=== PATIENT | female | born 1945 | race Caucasian/White ===

== ENCOUNTER → 2019-09-19 14:23 | Outpatient (CLI) | payer MEDICARE, BC, SELFPAY ==
[2019-09-19 13:37] VITALS: BMI 38.5
[2019-09-19 16:54] LABS: BNP,B-Type NATRIURETIC PEPTIDE 161.8 pg/mL (0-100)
[2019-09-19 16:55] LABS: Thyroid Stim Hormone (TSH) 1.33 uIU/mL (0.358-3.74)
== END ==
PROVIDERS: Family Provider Internal Medicine; PCP Internal Medicine; Referring Provider Internal Medicine Cardiovascular Disease; Visit Provider Internal Medicine Cardiovascular Disease
DX: I48.91 Unspecified atrial fibrillation (principal); R06.00 Dyspnea, unspecified
CPT/HCPCS: 36415; 83880; 84443

== ENCOUNTER → 2019-09-27 11:01 | Outpatient (CLI) | payer MEDICARE, BC, SELFPAY ==
[2019-09-19 13:37] VITALS: BMI 38.5
--- NOTE | 2019-09-27 11:02 | ECHOD_ITS ---
Reason For Study: Afib, Aflutter Procedure This was a 2D Doppler, Color Flow transthoracic echocardiogram. Contrast injection was performed. Exam performed in department. Left Ventricle Normal LV size. The estimated ejection fraction is 45 %. Unable to assess diastolic dysfunction due to arrhythmia. No regional wall motion abnormalities noted. Right Ventricle Normal RV size. Normal systolic function. Atria Normal left atrium. Normal right atrium. Mitral Valve Normal mitral valve. Mild (1+) eccentric mitral valve insufficiency. Tricuspid Valve Normal tricuspid valve. Mild (1+) tricuspid valve insufficiency. Pulmonary artery systolic pressure is 30 mmHg. Aortic Valve Trisinus/trileaflet aortic valve. Mild focal aortic valve calcification. Pulmonic Valve Normal pulmonic valve. Mild (1+) pulmonic valve insufficiency. Great Vessels Normal aortic root. The pulmonary artery is normal size. Normal inferior vena cava. Pericardium/Pleural No pericardial effusion. Medication Diluted definity 6ml given slow IV push to enhance endocardial definition. MMode/2D Measurements & Calculations LVIDd: 4.8 cm IVSd: 0.97 cm Ao root diam: 2.9 cm LVIDs: 4.1 cm LVPWd: 0.99 cm RVDd: 3.0 cm FS: 15.3 % LAV(MOD-bp): 58.6 ml LA A4 area: 20.0 cm2 LA dimension(2D): 4.0 cm LAV(MOD-bp) Indexed: 29.8 ml/m2 LAV(MOD-sp2): 51.7 ml LAV(MOD-sp4): 53.8 ml RA A4 area: 13.9 cm2 Doppler Measurements & Calculations MV E max rubina: 79.7 cm/sec Ao V2 max: 147.2 cm/sec LV V1 max: 102.2 cm/sec Ao max P.7 mmHg LV V1 max P.2 mmHg Ao V2 mean: 108.5 cm/sec Ao mean P.1 mmHg Ao V2 VTI: 28.3 cm PA V2 max: 69.2 cm/sec TR max rubina: 260.5 cm/sec TR max P.1 mmHg Interpretation Summary Normal LV size. The estimated ejection fraction is 45 %. Unable to assess diastolic dysfunction due to arrhythmia. Mild (1+) eccentric mitral valve insufficiency. Contrast injection was performed. Ordering Physician: Gilberto Mcarthur Referring Physician: Rocio Jack Performed By: Shy Wood, ROMY, RVT
== END ==
PROVIDERS: Family Provider Internal Medicine; PCP Internal Medicine; Referring Provider Internal Medicine Cardiovascular Disease; Visit Provider Internal Medicine Cardiovascular Disease
DX: R06.00 Dyspnea, unspecified (principal); I48.91 Unspecified atrial fibrillation; I48.92 Unspecified atrial flutter
CPT/HCPCS: 93306; Q9957; A4216; C8929

== ENCOUNTER → 2019-10-15 05:54 | Outpatient (CLI) | payer MEDICARE, BC, SELFPAY ==
[2019-09-19 13:37] VITALS: BMI 38.5
--- NOTE | 2019-10-15 15:46 | STRESSREP ---
Stress Test Report Pharmacologic myocardial perfusion stress test. 74-year-old lady with a history of chest pain. Resting EKG demonstrates atrial fibrillation with a rate of 105 bpm resting blood pressure is 120/82 mmHg. 0.4 mg of regadenoson was infused per usual protocol followed by rapid intravenous saline flush injection continuous EKG monitoring was performed. The patient maintained atrial fibrillation throughout the recording. The maximum heart rate was 133 bpm which was 90% of maximum predicted heart rate the maximum workload was 1 metabolic equivalent. At rest nonspecific ST-T wave changes were noted at peak infusion nonspecific ST-T wave changes were noted. The resting blood pressure is 120/82 with a final blood pressure 124/82. Myocardial perfusion protocol. 14.1 mCi of technetium 99m sestamibi was injected at rest. 0.4 mg of regadenoson was infused per usual protocol peak infusion 44.4 mCi of technetium 99m sestamibi was injected stress images were obtained stress and rest images were reconstructed in comparing the short axis vertical long horizontal long axis. Gated images were also obtained Perfusion SPECT analysis: Review of the stress images demonstrate normal uptake of tracer noted in all areas of the myocardium the resting images similar demonstrate normal uptake of tracer noted in all areas of the myocardium. No areas of reversibility are noted suggest ischemia no previous infarct is noted. Gated SPECT analysis: The gated ejection fraction is noted to be 45%. Conclusion: Normal pharmacologic myocardial perfusion stress test. Atrial fibrillation noted. Low normal ejection fraction.
== END ==
PROVIDERS: Family Provider Internal Medicine; PCP Internal Medicine; Referring Provider Physician Assistant Medical; Visit Provider Physician Assistant Medical
DX: I48.91 Unspecified atrial fibrillation (principal); R06.09 Other forms of dyspnea
CPT/HCPCS: 78452; 93017; A9500; A4216; J2785

== ENCOUNTER 2019-10-22 10:48 | Day surgery (SDC) | payer MEDICARE, BC, SELFPAY ==
[2019-09-19 13:37] VITALS: BMI 38.5
[2019-10-22 09:12] VITALS: BMI 38.5
--- NOTE | 2019-10-22 11:49 | PCM.HP.BLA ---
History and Physical Date of Admission: 10/22/19 This is a 74-year-old female that presents here today for a cardioversion. She has a new diagnosis of atrial fibrillation. She has been anticoagulated for at least 30 days. She does have a history of hypertension, hyperlipidemia, diabetes mellitus, Jalil's vasculitis. Patient also had a history of right breast carcinoma in 2002. She presented to our office in August 2019 with symptoms of tachycardia and shortness of breath. She was noted to be in atrial fibrillation. A factor X a inhibitor was added in addition to a rate limiting medication. She did undergo an echocardiogram which demonstrated an ejection fraction of 45%. Unable to assess diastolic dysfunction due to arrhythmia. Mild mitral valve insufficiency. Pharmacologic nuclear stress test was negative for ischemia. 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) Breast cancer, right breast (Resolved) Fibromyalgia (Chronic) Obesity (Chronic) Osteoarthritis (Chronic) Type 2 diabetes mellitus (Chronic) Unspecified asthma, uncomplicated (Chronic) Jalil's granulomatosis (Chronic) Surgical History H/O total hysterectomy (Resolved) History of lumpectomy of right breast (Resolved 2002) ROS Const Const: Positive for fatigue; negative for weakness, headache(s), frequent falls, difficulty sleeping or excessive sweating Eyes Eyes: Negative for loss of peripheral vision, transient loss of vision, blurry vision, double vision or tunnel vision ENT ENT: Negative for headache(s), dizziness, Nosebleed/epistaxis or balance problems Cardio Chest Pain: No Palpitations: No Edema: Bilateral (Non pitting BLE edema) Muscle aches with walking: None Resp Respiratory: Positive for SOB with activity; negative for SOB at rest, SOB orthopnea\SOB lying down, Cough or paroxysmal nocturnal dyspnea GI GI: Negative nausea, vomiting, heartburn or black,tarry stools : Negative for hematuria Musc Musc: Negative for muscle aches/ myalgia, muscle weakness, joint pain or balance problems Skin Skin: Negative non-healing lesions, rash or unusual bruising Neuro Neuro: Negative for dizziness, lightheadedness, near syncope, syncope, orthostatic symptoms, frequent falls, headache(s), weakness, blurry vision, double vision or lack of coordination Bean Hematologic/Lymphatic: Negative for easy bleeding or easy bruising Endo Endo: Positive for fatigue; negative for excessive sweating or increased thirst/drinking Psych Psych: Negative for anxiety or depression Allergy Allergy/Immunology: Negative for hives, Negative for rash Cardiology Exam Const Appearance: cooperative, healthy appearing, no acute distress, well developed and well groomed Nutritional Appearance: average body habitus and well nourished Orientation: alert, awake and oriented x3 Head Head: normal to inspection, normocephalic and atraumatic Ears: hearing grossly normal bilaterally and external ears normal Nose: external nose normal, nares normal, nasal mucous membranes and turbinates normal, septum normal, no nasal discharge Face and Sinus: face symmetric Mouth: oral mucosae normal, tongue normal, oropharynx normal and moist mucous membranes Teeth and gingiva: dentition normal Throat: posterior oropharynx normal, tonsils normal and uvula midline Eyes General: appearance normal, both eyes and all related structures Eyelids: eyelids normal Conjunctivae: conjunctivae normal Pupils: PERRL, normal by confrontation and accommodation normal EOM: EOM intact bilaterally Neck Neck: normal visual inspection, trachea midline and no JVD JVD: +5 Carotids: normal carotid upstroke and bounding pulses Chest Chest inspection: normal inspection of the chest, symmetric chest movement and normal respiratory effort Auscultation: Bilateral: Clear to Auscultation Cardio Palpation: normal PMI Rate: regular rate Rhythm: irregular rhythm Heart sounds: S1 normal, S2 normal and normal, physiologic split S2; negative rub, gallop or murmur GI GI: normal to inspection, soft, no hepatosplenomegaly and bowel sounds present Neuro General: alert, awake, oriented x3, gait normal, moves all extremities and no focal sensory deficit Skin Skin: no rashes or lesions noted Extremities Pulses: Normal: Right Femoral Pulse, Left Femoral Pulse, Right Dorsalis Pedis Pulse, Left Dorsalis Pedis Pulse, Right Posterior Tibial Pulse, Left Posterior Tibial Pulse, Right Radial Pulse, Left Radial Pulse Lower Extremity Edema: None: Bilateral Musculoskel Musculoskeletal: No joint tenderness Psych Psychological: normal affect Assessment & Plan 1. Atrial fibrillation with rapid ventricular response I48.91 We will proceed with a cardioversion today. She will follow-up in the office next week for an EKG. Will adjust medications appropriately. 2. Essential (primary) hypertension I10 She will continue with her current medications 3. Non-ischemic cardiomyopathy I42.8 Her ejection fraction is noted to 45%. She will continue with her MU inhibitor in addition to her beta-cristina that she was recently started on. Hopefully after she has been cardioverted this will improve. We will recheck echocardiograms as deemed appropriate.
--- NOTE | 2019-10-22 12:18 | CARDIOVERS_ITS ---
Cardioversion Cardioversion: DC cardioversion. 74-year-old lady with a history of nonischemic cardiomyopathy and persistent atrial fibrillation. Patient was brought to the cardiac catheterization lab in the postabsorptive nonsedated state. Informed consent was obtained. The patient was seen by Dr. Monae of the critical care division. Anterior-posterior pads were applied. An EKG was done which ascertained atrial fibrillation. Patient was then administered 6 mg of intravenous etomidate. 200 J of synchronized DC biphasic cardioversion energy were applied with prompt reversal to sinus rhythm. Patient had short periods of supraventricular tachyarrhythmia. Patient will be administered 200 mg of oral amiodarone daily for a month pre ceded by 150 mg of intravenous amiodarone. Continue anticoagulation Follow-up in the heart group office. Conclusion: Successful DC cardioversion from atrial fibrillation to sinus rhythm.
--- NOTE | 2019-10-22 12:39 | PCM.OP.PRO ---
Procedure Report Date of Procedure: 10/22/19 CONSCIOUS SEDATION REPORT DATE OF SERVICE: October 22, 2019 BRIEF HISTORY OF PRESENT ILLNESS: The patient is a 74-year-old female who presented to [facility] for an elective outpatient cardioversion due to underlying atrial fibrillation. The patient is currently anticoagulated on Eliquis. Her last surface echocardiogram revealed an ejection fraction of approximately 45%. The patient denies any previous anesthetic complications. She does report a known history of asthma, which is currently controlled with the use of daily Advair. She denies a history of obstructive sleep apnea. PHYSICAL EXAMINATION: VITAL SIGNS: Reviewed and were acceptable. GENERAL: The patient is an obese female, in no apparent distress, speaking in full sentences. HEENT: Normocephalic, atraumatic. Mucous membranes are moist and pink. Good mouth opening noted. Trachea is midline. CHEST: S1, S2 irregularly irregular. No murmurs, rubs or gallops were noted. LUNGS: Clear to auscultation bilaterally without appreciable wheezes, rales or rhonchi. ABDOMEN: Soft, nontender, nondistended. Positive bowel sounds. EXTREMITIES: There is no clubbing, cyanosis or edema. ASA Class: II DESCRIPTION OF PROCEDURE: After confirmation of informed consent, the patient's anesthesia plan was reviewed in detail. Etomidate was chosen. Risks and benefits were reviewed and the patient agreed to proceed. At 1210, the patient was given 6 mg of etomidate. The patient achieved an appropriate level of sedation and was given a 200 joule synchronized cardioversion by Dr. Mcarthur at the bedside. This was successful in achieving normal sinus rhythm. The patient was monitored until 1220, at which time she reached her baseline mental status and function. The patient tolerated the procedure well. COMPLICATIONS: None ESTIMATED BLOOD LOSS: None RECOMMENDATIONS: Okay to recover in usual fashion. Code Visit 9xxxx: Other Procedure See Report - [id number]
== END 2019-10-22 13:23 | disposition home or self-care (01) ==
PROVIDERS: Family Provider Internal Medicine; PCP Internal Medicine; Referring Provider Internal Medicine Cardiovascular Disease; Visit Provider Internal Medicine Cardiovascular Disease
DX: I48.19 Other persistent atrial fibrillation (principal); E11.9 Type 2 diabetes mellitus without complications; I10 Essential (primary) hypertension; E78.5 Hyperlipidemia, unspecified; I34.0 Nonrheumatic mitral (valve) insufficiency; I42.8 Other cardiomyopathies; M31.30 Wegener's granulomatosis without renal involvement; J45.909 Unspecified asthma, uncomplicated; M79.7 Fibromyalgia; E66.9 Obesity, unspecified; M19.90 Unspecified osteoarthritis, unspecified site; Z79.899 Other long term (current) drug therapy; Z79.01 Long term (current) use of anticoagulants; Z79.84 Long term (current) use of oral hypoglycemic drugs; Z85.3 Personal history of malignant neoplasm of breast
CPT/HCPCS: 92960; 93005; J7040

== ENCOUNTER → 2019-11-22 12:52 | Outpatient (CLI) | payer MEDICARE, BC, SELFPAY ==
[2019-10-25 09:10] VITALS: BMI 38.9
== END ==
PROVIDERS: Family Provider Internal Medicine; PCP Internal Medicine; Referring Provider Internal Medicine Cardiovascular Disease; Visit Provider Internal Medicine Cardiovascular Disease
DX: I48.19 Other persistent atrial fibrillation (principal)
CPT/HCPCS: 93225; 93226

== ENCOUNTER → 2020-07-15 06:54 | Outpatient (CLI) | payer MEDICARE, BC, SELFPAY ==
[2020-06-05 12:32] VITALS: BMI 40.4
--- NOTE | 2020-07-15 08:19 | RAD_ITS ---
STUDY: X-RAY CHEST REASON FOR EXAM: Female, 75 years old. Patient is on amiodarone. Hx of Right sided breast CA with hx of lumpectomies 4 times. TECHNIQUE: PA and lateral views of the chest. COMPARISON: None. FINDINGS: Surgical clips are seen in the right axillary region. Prior right mastectomy. Hyperinflation. Calcific nodular densities seen in the anterior right lower lobe. There is no demonstrated pleural abnormality. Normal size heart. Normal mediastinum and roosevelt. Normal visualized pulmonary arteries. Normal visualized aortic arch and descending thoracic aorta. There is demineralization of the osseous structures. Normal visualized ribs, clavicles, and shoulders. There is no demonstrated abnormality of the visualized soft tissue structures of the upper abdomen. RAD/Chest PA and Lateral IMPRESSION: Hyperinflation. No acute abnormality is seen. Electronically Signed: Ac Nicole, at 9:37 EDT , Service support ,
--- NOTE | 2020-07-16 08:20 | PFT ---
INTRODUCTION: The patient is a 75-year-old female that presents for pulmonary function studies secondary to a diagnosis of shortness of breath. Respiratory therapy reports good patient effort. Bronchodilators were used during testing. INTERPRETATION: Forced expiration spirometry demonstrates the presence of a moderate large airways obstructive ventilatory defect. There was a significant response to aerosolized bronchodilators noted. Spirograms are of good quality and plateau gradually indicating slow emptying of the lungs. Body plethysmography was performed and revealed an elevated TLC and RV to 137% and 216% of predicted, respectively. This would be indicative of underlying hyperinflation and air trapping. Diffusing capacity by single breath CO is reduced at 44% of predicted. IMPRESSION: Partially reversible moderate large airways obstructive ventilatory defect with associated hyperinflation, air trapping and disproportionate reduction in diffusing capacity.
== END ==
LOC: PSN 06:57
PROVIDERS: PCP Internal Medicine; Referring Provider Internal Medicine Cardiovascular Disease; Visit Provider Internal Medicine Cardiovascular Disease
DX: I48.19 Other persistent atrial fibrillation (principal)
CPT/HCPCS: 71046; 94060; 94726; 94729

== ENCOUNTER 2021-02-26 08:00 | Emergency (ER) | payer MEDICARE, BC, SELFPAY ==
[2020-07-24 06:25] VITALS: BMI 40.6
[2021-02-26 08:01] VITALS: BP 146/113; PULSE 53; RESP 16; TEMP 36.4; O2SAT 95; BMI 41.3
--- NOTE | 2021-02-26 08:44 | RAD_ITS ---
STUDY: X-RAY - LEFT KNEE REASON FOR EXAM: Female, 75 years old. Injury TECHNIQUE: 4 view(s) of the knee. COMPARISON: None. FINDINGS: Normal visualized distal femur. Normal visualized proximal tibia and fibula. Normal proximal tibiofibular articulation. Normal medial femorotibial compartment. Normal lateral femorotibial compartment. Normal patellofemoral articulation. Diffuse soft tissue swelling. RAD/Knee 4 or More Views IMPRESSION: Diffuse soft tissue swelling. Electronically Signed: Ac Nicole MD at 9:45 EDT , Service support ,
--- NOTE | 2021-02-26 08:44 | RAD_ITS ---
STUDY: X-RAY - LEFT TIBIA AND FIBULA REASON FOR EXAM: Female, 75 years old. Injury TECHNIQUE: 2 view(s) of the tibia and fibula were obtained. COMPARISON: None. FINDINGS: Normal visualized tibia. Normal visualized fibula. Calcaneal spurs. Diffuse soft tissue swelling. RAD/Tibia & Fibula 2 Views IMPRESSION: Diffuse soft tissue swelling. Electronically Signed: Ac Nicole MD at 9:45 EDT , Service support ,
--- NOTE | 2021-02-26 09:17 | EDS_ITS ---
HPI History of Present Illness Chief Complaint: Lower Extremity Injury Informant: patient Onset/Context/Timing Onset: Yesterday Narrative Narrative: 75-year-old female presenting after mechanical fall. She states this occurred yesterday. She tripped over a rug and fell onto her knees. She states most of her weight went onto her left knee. She denies hitting her head or losing consciousness. She is on Eliquis. She is able to ambulate with pain. She took Tylenol prior to arrival. [facility] Medical History (Updated 02/26/21 @ 10:[address] 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 Hyperlipemia Non-ischemic cardiomyopathy Nonsustained ventricular tachycardia Obesity Osteoarthritis Paroxysmal atrial fibrillation Persistent atrial fibrillation Rheumatoid arthritis Type 2 diabetes mellitus Unspecified asthma, uncomplicated Jalil's granulomatosis Home Medications albuterol sulfate 90 mcg/actuation aerosol inhaler 2 puff INHALATION Q6H 09/18/19 [History Last Taken Unknown] atorvastatin 20 mg tablet 20 mg PO QHS 09/18/19 [History Last Taken Unknown] calcium carbonate-vitamin D3 600 mg calcium-200 unit capsule 1 cap PO DAILY cap 09/18/19 [History Last Taken Unknown] esomeprazole magnesium 40 mg capsule,delayed release 40 mg PO BID cap 09/18/19 [History Last Taken Unknown] ferrous sulfate 325 mg (65 mg iron) tablet 325 mg PO TID tab 09/18/19 [History Last Taken Unknown] fluticasone 100 mcg-salmeterol 50 mcg/dose blistr powdr for inhalation 1 puff INHALATION BID 09/18/19 [History Last Taken Unknown] glipizide 5 mg tablet 5 mg PO BID 09/18/19 [History Last Taken Unknown] leucovorin calcium 5 mg tablet 5 mg PO QWEEK tab 09/18/19 [History Last Taken Unknown] sulfamethoxazole 800 mg-trimethoprim 160 mg tablet 1 tab PO .3xweek tab 09/18/19 [History Last Taken Unknown] potassium chloride 20 mEq tablet,extended release 20 meq PO DAILY #30 tab 09/19/19 [Rx Last Taken 10/22/19] rituximab 10 mg/mL concentrate,intravenous mg .ROUTE 06/21/20 [History Last Taken Unknown] losartan 50 mg tablet 25 mg PO DAILY tab 07/24/20 [History Last Taken Unknown] amiodarone 200 mg tablet 200 mg PO DAILY #90 tab 09/30/20 [Rx Last Taken Unknown] apixaban 5 mg tablet See Rx Instructions .ROUTE .COMPLEX #180 tab 10/20/20 [Rx Last Taken Unknown] furosemide 40 mg tablet See Rx Instructions .ROUTE .COMPLEX #90 tab 12/08/20 [Rx Last Taken Unknown] metoprolol tartrate 100 mg tablet See Rx Instructions .ROUTE .COMPLEX #180 tab 12/08/20 [Rx Last Taken Unknown] hydrocodone-acetaminophen 1 tab PO Q6H PRN PRN 3 Days #10 tablet 02/26/21 [Rx Last Taken Unknown] Allergy/AdvReac Type Severity Reaction Status Date / Time MU Inhibitors Allergy swelling Verified 02/26/21 08:03 Surgical History H/O total hysterectomy History of cardioversion (10/22/19) History of lumpectomy of right breast (2002) Social History Smoking Status: Former smoker how long ago did patient quit smokin years ROS ROS ED Constitutional Constitutional ED: Denies fever(s) Eyes Eyes: Denies change in vision ENT ENT ED: Denies rhinorrhea or sore throat Cardiovascular Cardiovascular: Denies chest pain or palpitations Respiratory/Chest Respiratory/Chest: Denies cough or dyspnea Gastrointestinal Gastrointestinal: Denies abdominal pain, diarrhea, nausea or vomiting Genitourinary Genitourinary ED: Denies dysuria Musculoskeletal Musculoskeletal: Reports other Details: Left knee pain Integumentary Denies rash Neurologic Neurologic: Denies headache(s) Psychiatric Psychiatric: Denies suicidal thoughts EXAM Physical Exam Const Vital Signs: 02/26/21 08:01 Temperature 97.6 F L Temperature Source Temporal Pulse Rate 53 L Respiratory Rate 16 Blood Pressure 146/113 H Blood Pressure Mean 124 Pulse Ox 95 Oxygen Delivery Method Room Air Positive well nourished and well developed General Appearance ED: well developed HEENT Reports normocephalic and head/scalp atraumatic Eyes PERRL and EOMs intact bilaterally Neck supple Neck Narrative: No midline tenderness General: Negative for tenderness Chest Wall inspection of chest normal Resp normal respiratory effort and clear to auscultation bilaterally Cardio regular rate and regular rhythm GI non-tender and non-distended Palpation: soft; Negative for guarding or rebound tenderness present no CVA tenderness Back/Spine Cervical Spine: Negative for cervical spine tenderness Extremity Extremity Narrative: Ecchymosis and tenderness to left knee and distal to left knee. Active full range of motion. Compartments soft. Normal distal pulses. Neuro oriented x3 Sensorium / Orientation: alert Psych mental status grossly normal MDM MDM MDM Narrative Medical decision making narrative: Patient was advised to ice and elevate. She was given prescription for [place]. Advised to follow-up with her primary care physician. Advised return to ED for worsening complaints. Radiography Diagnostic Testing: Radiology Impression Knee X-Ray 02/26/21 08:44 IMPRESSION: Diffuse soft tissue swelling. Electronically Signed: Ac Nicole MD at 9:45 EDT , Service support , Tibia/Fibula X-Ray 02/26/21 08:44 IMPRESSION: Diffuse soft tissue swelling. Electronically Signed: Ac Nicole MD at 9:45 EDT , Service support , Discharge Plan Triage Chief Complaint: Lower Extremity Injury ED Provider: Marlene Ramos Dx/Rx/DC Orders Clinical Impression: Contusion of left leg Instructions: ED Soft Tissue Contusion Prescriptions: New hydrocodone-acetaminophen [hydrocodone-acetaminophen] 1 TABLET tablet 1 tab PO Q6H PRN PRN (Reason: Pain) 3 Days Qty: 10 RF: 0 No Action potassium chloride 20 mEq tablet extended release 20 meq PO DAILY Qty: 30 RF: 6 sulfamethoxazole-trimethoprim [Bactrim DS] 800-160 mg tablet 1 tab PO .3xweek RF: 0 glipizide [Glucotrol] 5 mg tablet 5 mg PO BID RF: 0 albuterol sulfate [ProAir HFA] 90 mcg/actuation HFA aerosol inhaler 2 puff INHALATION Q6H RF: 0 leucovorin calcium 5 mg tablet 5 mg PO QWEEK RF: 0 fluticasone propion-salmeterol [Advair Diskus] 100-50 mcg/dose blister with device 1 puff INHALATION BID RF: 0 atorvastatin 20 mg tablet 20 mg PO QHS RF: 0 esomeprazole magnesium [Nexium] 40 mg capsule,delayed release(DR/EC) 40 mg PO BID RF: 0 ferrous sulfate 325 mg (65 mg iron) tablet 325 mg PO TID RF: 0 calcium carbonate-vitamin D3 600 mg calcium-200 unit capsule 600 mg calcium- 200 unit capsule 1 cap PO DAILY RF: 0 rituximab 10 mg/mL concentrate,intravenous 10 mg/mL concentrate .Route RF: 0 losartan 50 mg tablet 25 mg PO DAILY RF: 0 amiodarone 200 mg tablet 200 mg PO DAILY Qty: 90 RF: 3 apixaban [Eliquis] 5 mg tablet See Rx Instructions .ROUTE .COMPLEX Qty: 180 RF: 3 metoprolol tartrate 100 mg tablet See Rx Instructions .ROUTE .COMPLEX Qty: 180 RF: 3 furosemide 40 mg tablet See Rx Instructions .ROUTE .COMPLEX Qty: 90 RF: 3 Primary Care Provider: Rocio Jack Referrals: Rocio Jack MD [Primary Care Provider] - Disposition Disposition: Home, self care
[2021-02-26 10:17] VITALS: BP 160/57; PULSE 42; RESP 16; O2SAT 99
== END 2021-02-26 10:20 | disposition home or self-care (01) ==
PROVIDERS: Emergency Provider Emergency Medicine; PCP Internal Medicine
DX: S80.12XA Contusion of left lower leg, initial encounter (principal); E66.9 Obesity, unspecified; W19.XXXA Unspecified fall, initial encounter; Z87.891 Personal history of nicotine dependence
CPT/HCPCS: 73564; 73590; 99282

== ENCOUNTER → 2021-03-05 14:34 | Outpatient (CLI) | payer MEDICARE, BC, SELFPAY ==
[2021-03-05 08:06] VITALS: BMI 41.3
[2021-03-05 15:43] LABS: AST(SGOT) 13 U/L (15-37); Alanine Aminotransfer ALT/SGPT 16 U/L (13-56); Albumin, Serum 3.5 g/dL (3.2-5.0); Alkaline Phosphatase 72 U/L (45-117); Bilirubin, Direct 0.15 mg/dL (0.00-0.30); Globulin 3.7 g/dL (2.2-4.2); Protein, Total 7.2 g/dL (6.4-8.2); Thyroid Stim Hormone (TSH) 2.94 uIU/mL (0.358-3.74)
== END ==
PROVIDERS: PCP Internal Medicine; Referring Provider Internal Medicine Cardiovascular Disease; Visit Provider Internal Medicine Cardiovascular Disease
DX: E78.5 Hyperlipidemia, unspecified (principal); I48.0 Paroxysmal atrial fibrillation; I50.42 Chronic combined systolic (congestive) and diastolic (congestive) heart failure
CPT/HCPCS: 36415; 80076; 84443

== ENCOUNTER → 2021-03-12 10:49 | Outpatient (CLI) | payer MEDICARE, BC, SELFPAY ==
[2021-03-05 08:06] VITALS: BMI 41.3
--- NOTE | 2021-03-12 10:49 | ECHOCS_ITS ---
Reason For Study: AFIB Procedure This was a 2D Doppler, Color Flow transthoracic echocardiogram. The study was technically difficult. Contrast injection was performed. Exam performed in department. Left Ventricle Normal LV size. Left ventricular systolic function is normal. The estimated ejection fraction is 55 %. Stage 2 diastolic dysfunction. No regional wall motion abnormalities noted. Right Ventricle Normal RV size. Normal systolic function. Atria Normal left atrium. Normal right atrium. Mitral Valve Normal mitral valve. Tricuspid Valve Normal tricuspid valve. Mild (1+) tricuspid valve insufficiency. Pulmonary artery systolic pressure is 38 mmHg. Aortic Valve The aortic valve is not well visualized. Pulmonic Valve The pulmonic valve is not well visualized. Great Vessels Normal aortic root. The pulmonary artery is normal size. Normal inferior vena cava. Pericardium/Pleural No pericardial effusion. Medication 22 gauge I.V. with prn adaptor inserted into right arm. Diluted definity 6ml given slow IV push to enhance endocardial definition. MMode/2D Measurements & Calculations LVIDd: 5.2 cm IVSd: 0.99 cm Ao root diam: 3.2 cm LVIDs: 3.7 cm LVPWd: 1.0 cm RVDd: 3.2 cm FS: 29.5 % LAV(MOD-bp): 67.1 ml LA A4 area: 21.2 cm2 LA dimension(2D): 4.4 cm LAV(MOD-bp) Indexed: 33.5 ml/m2 LAV(MOD-sp2): 77.9 ml LAV(MOD-sp4): 57.9 ml RA A4 area: 10.3 cm2 Time Measurements MV dec time: 0.13 sec Doppler Measurements & Calculations MV E max amaury: 87.4 cm/sec Lat Peak E' Amaury: 9.3 cm/sec Med Peak E' Amaury: 4.3 cm/sec MV A max amaury: 48.2 cm/sec E/E' lat: 9.4 E/E' med: 20.5 MV E/A: 1.8 Ao V2 max: 201.5 cm/sec LV V1 max: 91.1 cm/sec PA V2 max: 89.7 cm/sec Ao max P.3 mmHg LV V1 max P.3 mmHg Ao V2 mean: 147.6 cm/sec LV V1 mean P.1 mmHg Ao mean P.5 mmHg LV V1 mean: 70.4 cm/sec Ao V2 VTI: 55.3 cm LV V1 VTI: 27.3 cm PI end-d amaury: 67.6 cm/sec TR max amaury: 288.2 cm/sec TR max P.2 mmHg ECHO/Echo Complete W/ Contrast Interpretation Summary Normal LV size. Left ventricular systolic function is normal. The estimated ejection fraction is 55 %. Stage 2 diastolic dysfunction. Contrast injection was performed. Ordering Physician: Gilberto Mcarthur Referring Physician: CAMELIA COCHRAN Performed By: Morena Sherman, ROMY, RVT
== END ==
PROVIDERS: PCP Internal Medicine; Referring Provider Internal Medicine Cardiovascular Disease; Visit Provider Internal Medicine Cardiovascular Disease
DX: I42.8 Other cardiomyopathies (principal)
CPT/HCPCS: 93306; Q9957; A4216; C8929

== ENCOUNTER 2025-04-17 14:45 | Outpatient (RCR) | payer MEDICARE, BC, SELFPAY ==
[2025-04-10 14:18] VITALS: BP 122/58; RESP 18; TEMP 36.1; BMI 32.3
--- NOTE | 2025-04-11 10:14 | WC ---
PHOTO 04/10/25 LEFT BUTTOCK
--- NOTE | 2025-04-11 13:39 | HP.PCM_ITS ---
History of Present Illness Date of Service: 04/10/25 Chief Complaint: Pressure ulceration of the left buttock, stage III History of Wound: This is a 79-year-old female who presented with an ulceration on the left buttock. The ulceration has been present for approximately 2 to 3 months. It appears to be pressure related. The patient is limited in ambulation, and requires the use of a walker. She sits for long periods each day. She claims to sleep on a flat mattress at night. However, she can only lay on her back, and is unable to assume the lateral decubitus position due to chronic back problems. She is under the care of Pain Management, and is scheduled to undergo injection procedures next month. She uses a foam cushion on her wheelchair. She has been using Calmoseptine and Neosporin topically on the ulcer site. She is on long-term systemic anticoagulation with Eliquis due to atrial fibrillation. 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 As result, she is prediabetic. Because of her predilection to long periods of sitting, she also experiences swelling in her lower extremities. 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 Unspecified asthma, uncomplicated Osteoarthritis Breast cancer, right breast Fibromyalgia Obesity Essential (primary) hypertension Hyperlipemia Jalil's granulomatosis Home Medications Medication Instructions Recorded Last Taken Type atorvastatin 20 mg tablet 20 mg PO QHS 09/18/19 Unknow n History calcium 600 mg (as 1 cap PO DAILY 09/18/19 Unkn own History carbonate)-vitamin D3 5 mcg (200 unit) capsule (Calcium 600 + D(3)) glipizide 5 mg tablet (Glucotrol) 5 mg PO BID 09/18/19 Unknown History potassium chloride 20 mEq 20 meq PO DAILY #30 tabs 10/22/19 Rx tablet,extended release rituximab 10 mg/mL mg .Route 06/21/20 Unknown H istory concentrate,intravenous (Rituxan) esomeprazole magnesium 40 mg 40 mg PO DAILY 12/08/21 U nknown History capsule,delayed release (Nexium) ferrous sulfate 325 mg (65 mg 325 mg PO BID 12/08/21 U nknown History iron) tablet sulfamethoxazole 800 1 tab PO MOWEFR 03/24/22 Unk nown History mg-trimethoprim 160 mg tablet (Bactrim DS) albuterol sulfate 2.5 mg/3 mL 2.5 mg inhalation Q4H CO N 04/19/24 Unknown History (0.083 %) solution for nebulization shortness of breat h or wheezing albuterol sulfate 90 mcg/actuation 2 puff inhalation Q 4H PRN 04/19/24 Unknown History aerosol inhaler (ProAir HFA) shortness of breath or wh eezing diclofenac sodium 1 % topical gel 2 g topical 4XD PRN 04/19/24 Unknown History (Arthritis Pain (diclofenac)) fluticasone 500 mcg-salmeterol 50 inhalation 04/19/24 Unknown History mcg/dose blistr powdr for inhalation (Wixela Inhub) hydroquinone 4 % topical cream 1 applic topical BID CO N 04/19/24 Unknown History hyoscyamine sulfate 0.125 mg tablet 0.125 mg PO BID-QI D PRN 04/19/24 Unknown History loratadine 10 mg tablet (Claritin) 10 mg PO DAILY 03/25 05/16 Unknown History multivitamin 1 tab PO DAILY 04/19/24 Unkn own History nystatin 100,000 unit/gram topical 1 applic topical BI D 04/19/24 Unknown History cream prednisone 5 mg tablet 5 mg PO QDAY 04/19/24 Unknow n History tizanidine 4 mg tablet 4 mg PO TID PRN muscle spast icity 04/19/24 Unknown History amiodarone 100 mg tablet 100 mg PO DAILY #90 tabs Unknown Rx apixaban 5 mg tablet (Eliquis) See Rx Instructions .Ro resighini 12/05/24 Unknown Rx .COMPLEX #180 tabs metoprolol tartrate 100 mg tablet 100 mg PO BID #180 T ABLETS 02/25/25 Unknown Rx furosemide 40 mg tablet 40 mg PO DAILY #90 tabs 02/22 12/18 Unknown Rx losartan 25 mg tablet 25 mg PO DAILY #90 tabs 12/18 Unknown Rx Allergy/AdvReac Type Severity Reaction Status Date / Time adhesive tape Allergy Intermediate skin Verified 04/10/25 14:40 irritation montelukast (From Singulair) Allergy Unknown Swelling Verified 04/10/25 14:40 MU Inhibitors Allergy swelling Verified 04/10/25 14:40 Surgical History History of cardioversion (10/22/19) H/O total hysterectomy History of lumpectomy of right breast (2002) Social History Smoking Status: Former smoker how long ago did patient quit smokin years alcohol intake: current alcohol intake frequency: holidays/special occasions only substance use type: does not use caffeine: Yes Type: tea Vital Signs Vital Signs Vital Signs: 04/10/25 14:18 Temperature 96.9 F L Temperature Source Temporal Respiratory Rate 18 Blood Pressure 122/58 H Blood Pressure Mean 79 Blood Pressure Source Manual Blood Pressure Position Sitting Blood Pressure Location Left Arm Oxygen Delivery Method Room Air Weight Weight: 177 lb Body Mass Index (BMI) 32.3 Physical Exam Const alert, oriented x3, no apparent distress and well nourished Constitutional Narrative: Patient's BMI is 32.4. The patient is limited in her mobility due to back pain. General Appearance: cooperative, comfortable and well developed Orientation / Consciousness: awake, oriented to person, oriented to place and oriented to time HEENT normocephalic and head/scalp atraumatic Head and Scalp: normal to inspection, normocephalic and atraumatic Nose: external nose normal External Ear: external ears normal Eyes EOMs intact bilaterally General Eye: normal appearance of both eyes Resp normal respiratory effort, normal air movement, no retractions and no use of accessory muscles Effort and Inspection: able to speak in complete sentences Extremity Extremity Narrative: Moderate swelling is noted in the lower extremities bilaterally. Skin Wound Narrative: An ulceration is noted on the patient's left buttock. It appears to be a stage III pressure ulceration, extending through all layers of the dermis and into the subcutaneous tissues. There is no sign of infection or cellulitis. The base of the ulceration demonstrates a moderate amount of bioburden and nonviable tissue. Ulcer margins are not well beveled. The lynnette-ulcer skin is somewhat desiccated and eczematous. Ulcer dimensions are documented elsewhere. Neuro oriented x3 and CN's II-XII intact bilaterally Sensorium / Orientation: awake, alert, oriented to person, oriented to place and oriented to time Speech: speech normal Psych Appearance: grossly normal and appropriate Attitude: calm Activity / Motor Behavior: appropriate eye contact Speech: normal speech Mood & Affect: euthymic mood Thought Process: normal thought process Thought Content: normal thought content Attention / Concentration: attention grossly intact Debridement Note Debridement Note Wound debrided: Left buttock ulceration, stage III Laterality: Left Wound Grade/Stage: Stage III Type of Debridement: Excisional debridement Anesthesia Used: 5% Lidocaine Gel and Cetacaine Depth: Down to and including healthy tissue and in the subcutaneous layer Percentage of wound debrided: 100 Instrument Used: 5mm curette Tissue Removed: Bioburden and nonviable tissue Severity: Fat Layer Exposed Amount of bleeding with debridement: Mild Bleeding Controlled with: Compression and gauze Patient tolerated procedure: Patient tolerated procedure well Post-Debridement Measurements and Additional Note: Post-Debridement Measurements/Treatment - Nurse 1 - General Ulcer Assessment Start: 04/10/25 14:18 Freq: Status: Active Protocol: JOSE [email or web address].COURTNEY Activity Type Activity Date Activity User E-sign Co-sign Detail Recorded Client Recorded Date Recorded By Document 04/10/25 14:18 KW [id number] 04/10/25 14:38 KW Edit Result 04/10/25 14:18 KW (1) [id number] 04/10/25 14:44 KW (1) Height => 5 ft 2 in Weight => 177 lb Weight in Pounds => 177.0 lbs Body Mass Index (BMI) => 32.3 BMI Classification => Obese 04/10/25 14:18 - Today's Visit Information Type of service Nurse-only Visit Arrival Mode Wheelchair Patient Identification Verified (Name & Yes ) Height and Weight Height 5 ft 2 in Weight 177 lb Weight in Pounds 177.0 lbs Body Mass Index (BMI) 32.3 BMI Classification Obese Vital Signs Temperature (97.8 F-99.1 F) 96.9 F L Temperature Source Temporal Respiratory Rate (12-18) 18 Respiratory rate source Observation Oxygen Delivery Method Room Air Blood Pressure (90/60-120/80) 122/58 H Blood Pressure Mean 79 Source Manual Position Sitting Blood Pressure Location Left Arm History Since Last Visit- (Skip if this is Patient's initial visit) Left Footwear Regular Shoe Right Footwear Regular Shoe Pain Scale: 0-10 Numeric Is Patient Pain Free? No Buttocks -Description Burning -Intensity 4 -Alleviating Factors/Interventions Medication, Medicate when due,Inactivity/ Resting,Turning /Repositioning -Comments itching Communication Assessment Preferred language Amharic Snack Bar Cashier Required No Able to Read Yes Able to Write Yes Communication Tools None Caregiver Communication Skills No Impairment Impairment Right Hearing Abillity Normal Left Hearing Abillity Normal Visual Assistive Devices Glasses Teaching Assessment Preferences Verbal,Written, Demonstration Barriers to Learning None Readiness To Learn Excellent Willingness to Engage in Self Management High Activies Readiness to Engage in Self Management High Activities Anxiety Level Calm Cooperation Cooperative Perception Coherent Interest in Health Problem Asks Questions Education Importance Acknowledges Need Does Patient Smoke tobacco or other Yes substances Smoking Status Former smoker Is Patient Diabetic Yes Functional Assessment Recent Decline in Ability to Perform Denies Any Declines Culture/Mu-Ism/Chief Librarian Extension Department Cultural/Mu-Ism Needs that may affect No Treatment Plan Would you allow our hospital shuttle repairer to No meet you for the purpose of spiritual/ emotional support? Chief Librarian Extension Department to contact place of amish No WC - Nurse 1 - General Ulcer Measurement Start: 04/10/25 14:18 Freq: Status: Active Protocol: Activity Type Activity Date Activity User E-sign Co-sign Detail Recorded Client Recorded Date Recorded By Document 04/10/25 14:18 [id number] 04/10/25 14:38 04/10/25 14:18 Wound Center Nurse 1 #1 lt buttock cluster -Current Size (cm) - Length 2 -Current Size (cm) - Width 1 -Current Size (cm) - Depth 0.1 -Total Square Cm 2 -Date of Last Picture (Recall this 04/10/25 field) -Exudate Amt Small -Exudate Type Serosanguineous -Wound Margin Distinct, Outline Attached -Granulation Amt Large (67-100%) -Granulation Quality [place],Red -Texture (Lynnette-wound Skin Appearance) Assessed -Moisture (Lynnette-wound Skin Appearance) Assessed,Dry/ Scaly -Color (Lynnette-wound Skin Appearance) Assessed -Temperature (Lynnette-wound Skin No Abnormality Appearance) (Pt Warm) -Tenderness on Palpation (Lynnette-wound No Skin Appearance) -Ulcer Cleansing Soap and Water -Foul Odor after Cleansing No -Anesthetic Used 5% Lidocaine Gel - Nurse 2 - General Ulcer CM Notes Start: 04/10/25 14:18 Freq: Status: Active Protocol: Activity Type Activity Date Activity User E-sign Co-sign Detail Recorded Client Recorded Date Recorded By Document 04/10/25 15:15 [id number] 04/10/25 15:25 04/10/25 15:15 Wound Center Nurse 2 -Time 15:15 -Correct Patient Yes -Correct Side, Site, Position Yes -Correct Procedure Yes -Procedure Performed Yes -Type of Procedure Debridement -Clinical Debridement Subcutaneous -Tissue Removed Subcutaneous -Post Debridement (cm) - Length 1.5 -Post Debridement (cm) - Width 1.5 -Post Debridement (cm) - Depth 0.1 -Total Square (Post) (cm) 2.25 -Area of Debridement (cm) - Length 1.5 -Area of Debridement (cm) - Width 1.5 -Total Square (Area) (cm) 2.25 -Tunneling No -Undermining/Tunneling No -Circular Undermining No -Wound/Ulcer Outcome Not Healed -Ulcer Cleansing Not Cleansed -Foul Odor after Cleansing No -Bioengineered Tissue No -Bleeding Controlled with Pressure -Treatment Response Procedure Tolerated Well -Offloading No -Debridement - Subq, 1st 20sq cm Yes Pain Scale: 0-10 Numeric Is Patient Pain Free? Yes - Nurse 3 - General Ulcer D/C NN Start: 04/10/25 14:18 Freq: Status: Active Protocol: Activity Type Activity Date Activity User E-sign Co-sign Detail Recorded Client Recorded Date Recorded By Document 04/10/25 15:42 [facility] [id number] 04/10/25 15:43 [facility] 04/10/25 15:42 Wound Care Center Nurse 3 #1 lt buttock cluster -Ulcer Cleansing Rinsed/ Irrigated with Saline -Foul Odor after Cleansing No -Primary Dressing Applied Promogran, Silicone Border Foam 4x4 -Promogran 2 -Silicone Border Foam 4x4 2 Treatment Response Procedure Tolerated Well Pain Scale: 0-10 Numeric Is Patient Pain Free? Yes WC - Visit Discharge Discharge Condition Stable Ambulatory Status Wheelchair Transportation Private Auto Accompanied by Charges/Coding Multi Select Codes Visit Charges Office Visit/Consults: 12573 OV L4 New 45 min Integumentary Integumentary CPT Codes: 19905 Sudha subq tissue 20 sq cm/< Assessment/Plan Assessment/Plan (1) Pressure ulcer of left buttock, stage 3: CODE(S): L89.323 - Pressure ulcer of left buttock, stage 3 (2) Long-term current use of steroids: (3) Jalil's granulomatosis: CODE(S): M31.30 - Jalil's granulomatosis without renal involvement QUALIFIERS: Granulomatosis renal involvement: with renal involvement Qualified Code(s): M31.31 - Jalil's granulomatosis with renal involvement (4) CKD (chronic kidney disease), stage III: CODE(S): N18.3 - Chronic kidney disease, stage 3 (moderate) (5) Prediabetes: CODE(S): R73.03 - Prediabetes (6) Paroxysmal atrial fibrillation: CODE(S): I48.0 - Paroxysmal atrial fibrillation (7) Non-ischemic cardiomyopathy: CODE(S): I42.8 - Other cardiomyopathies (8) Chronic combined systolic and diastolic CHF (congestive heart failure): CODE(S): I50.42 - Chronic combined systolic (congestive) and diastolic (congestive) heart failure (9) Nonsustained ventricular tachycardia: CODE(S): I47.2 - Ventricular tachycardia (10) Essential (primary) hypertension: CODE(S): I10 - Essential (primary) hypertension (11) Hyperlipemia: CODE(S): E78.5 - Hyperlipidemia, unspecified QUALIFIERS: Hyperlipidemia type: mixed hyperlipidemia Qualified Code(s): E78.2 - Mixed hyperlipidemia (12) Unspecified asthma, uncomplicated: CODE(S): J45.909 - Unspecified asthma, uncomplicated (13) 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: CODE(S): M31.30 - Jalil's granulomatosis without renal involvement (14) Osteoarthritis: CODE(S): M19.90 - Unspecified osteoarthritis, unspecified site (15) Fibromyalgia: CODE(S): M79.7 - Fibromyalgia (16) History of cardioversion: CODE(S): Z98.890 - Other specified postprocedural states (17) H/O total hysterectomy: CODE(S): Z90.710 - Acquired absence of both cervix and uterus (18) History of lumpectomy of right breast: CODE(S): Z98.890 - Other specified postprocedural states PLAN: Plan This is a 79-year-old female who presented with an ulceration on her left buttock, appearing to be a stage III pressure ulceration. Patient is of limited mobility, due to severe back problems, and is under the care of the Pain Management service. She spends long periods each day in a sitting position. We have discussed offloading measures in detail. We are to make attempts to obtain a Roho cushion for the patient in her wheelchair. She has also been advised to seek positions other than sitting to enhance offloading measures. The patient claims to take a well-balanced and nutritious diet, and has been urged to continue this practice. We are to implement the use of Promogran topically to the ulceration on the left buttock. This is to be covered with Clive SAP. The patient and her caregiver have been instructed in the appropriate means of application. The use of a moisturizer such as AmLactin has been recommended for use on the eczematous skin on the buttocks. Additionally, because of swelling in the patient's lower extremities. She has been advised to elevate her lower extremities to heart level, or higher, as much as possible. We have also discussed that the chronic use of a systemic steroid may impair the wound healing process. The patient is to return in 1 week for reevaluation. Total time: 48 minutes
[2025-04-17 14:17] VITALS: BMI 32.3
--- NOTE | 2025-04-18 11:02 | WC ---
PHOTO 04/17/25 LEFT BUTTOCKS
--- NOTE | 2025-04-19 10:26 | HP.PCM_ITS ---
History of Present Illness Date of Service: 04/17/25 Chief Complaint: Pressure ulceration of the left buttock, stage III History of Wound: This is a 80-year-old female who presented with an ulceration on the left buttock. The ulceration has been present for approximately 2 to 3 months. It appears to be pressure related. The patient is limited in ambulation, and requires the use of a walker. She sits for long periods each day. She claims to sleep on a flat mattress at night. However, she can only lay on her back, and is unable to assume the lateral decubitus position due to chronic back problems. She is under the care of Pain Management, and is scheduled to undergo injection procedures next month. She uses a foam cushion on her wheelchair. She has been using Calmoseptine and Neosporin topically on the ulcer site. She is on long-term systemic anticoagulation with Eliquis due to atrial fibrillation. 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 As result, she is prediabetic. Because of her predilection to long periods of sitting, she also experiences swelling in her lower extremities. 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 Unspecified asthma, uncomplicated Osteoarthritis Breast cancer, right breast Fibromyalgia Obesity Essential (primary) hypertension Hyperlipemia Jalil's granulomatosis Home Medications Medication Instructions Recorded Last Taken Type atorvastatin 20 mg tablet 20 mg PO QHS 09/18/19 Unknow n History calcium 600 mg (as 1 cap PO DAILY 09/18/19 Unkn own History carbonate)-vitamin D3 5 mcg (200 unit) capsule (Calcium 600 + D(3)) glipizide 5 mg tablet (Glucotrol) 5 mg PO BID 09/18/19 Unknown History potassium chloride 20 mEq 20 meq PO DAILY #30 tabs 10/22/19 Rx tablet,extended release rituximab 10 mg/mL mg .Route 06/21/20 Unknown H istory concentrate,intravenous (Rituxan) esomeprazole magnesium 40 mg 40 mg PO DAILY 12/08/21 U nknown History capsule,delayed release (Nexium) ferrous sulfate 325 mg (65 mg 325 mg PO BID 12/08/21 U nknown History iron) tablet sulfamethoxazole 800 1 tab PO MOWEFR 03/24/22 Unk nown History mg-trimethoprim 160 mg tablet (Bactrim DS) albuterol sulfate 2.5 mg/3 mL 2.5 mg inhalation Q4H NJ N 04/19/24 Unknown History (0.083 %) solution for nebulization shortness of breat h or wheezing albuterol sulfate 90 mcg/actuation 2 puff inhalation Q 4H PRN 04/19/24 Unknown History aerosol inhaler (ProAir HFA) shortness of breath or wh eezing diclofenac sodium 1 % topical gel 2 g topical 4XD PRN 04/19/24 Unknown History (Arthritis Pain (diclofenac)) fluticasone 500 mcg-salmeterol 50 inhalation 04/19/24 Unknown History mcg/dose blistr powdr for inhalation (Wixela Inhub) hydroquinone 4 % topical cream 1 applic topical BID NJ N 04/19/24 Unknown History hyoscyamine sulfate 0.125 mg tablet 0.125 mg PO BID-QI D PRN 04/19/24 Unknown History loratadine 10 mg tablet (Claritin) 10 mg PO DAILY 03/25 05/16 Unknown History multivitamin 1 tab PO DAILY 04/19/24 Unkn own History nystatin 100,000 unit/gram topical 1 applic topical BI D 04/19/24 Unknown History cream prednisone 5 mg tablet 5 mg PO QDAY 04/19/24 Unknow n History tizanidine 4 mg tablet 4 mg PO TID PRN muscle spast icity 04/19/24 Unknown History amiodarone 100 mg tablet 100 mg PO DAILY #90 tabs Unknown Rx apixaban 5 mg tablet (Eliquis) See Rx Instructions .[place] 12/05/24 Unknown Rx .COMPLEX #180 tabs metoprolol tartrate 100 mg tablet 100 mg PO BID #180 T ABLETS 02/25/25 Unknown Rx furosemide 40 mg tablet 40 mg PO DAILY #90 tabs 02/22 12/18 Unknown Rx losartan 25 mg tablet 25 mg PO DAILY #90 tabs 12/18 Unknown Rx Allergy/AdvReac Type Severity Reaction Status Date / Time adhesive tape Allergy Intermediate skin Verified 04/10/25 14:40 irritation montelukast (From Singulair) Allergy Unknown Swelling Verified 04/10/25 14:40 MU Inhibitors Allergy swelling Verified 04/10/25 14:40 Surgical History History of cardioversion (10/22/19) H/O total hysterectomy History of lumpectomy of right breast (2002) Social History Smoking Status: Former smoker how long ago did patient quit smokin years alcohol intake: current alcohol intake frequency: holidays/special occasions only substance use type: does not use caffeine: Yes Type: tea Vital Signs Vital Signs Vital Signs: Weight Weight: 177 lb Body Mass Index (BMI) 32.3 Physical Exam Const alert, oriented x3, no apparent distress and well nourished Constitutional Narrative: Patient's BMI is 32.4. The patient is limited in her mobility due to back pain. General Appearance: cooperative, comfortable and well developed Orientation / Consciousness: awake, oriented to person, oriented to place and oriented to time HEENT normocephalic and head/scalp atraumatic Head and Scalp: normal to inspection, normocephalic and atraumatic Nose: external nose normal External Ear: external ears normal Eyes EOMs intact bilaterally General Eye: normal appearance of both eyes Resp normal respiratory effort, normal air movement, no retractions and no use of accessory muscles Effort and Inspection: able to speak in complete sentences Extremity Extremity Narrative: Moderate swelling is noted in the lower extremities bilaterally. Skin Wound Narrative: An ulceration is noted on the patient's left buttock. It appears to be a stage III pressure ulceration, extending through all layers of the dermis and into the subcutaneous tissues. There is no sign of infection or cellulitis. The base of the ulceration demonstrates a small amount of bioburden. Ulcer margins are well beveled. The ulceration is smaller in size, and dimensions are documented elsewhere. The lynnette-ulcer eczematous changes have improved significantly. Neuro oriented x3 and CN's II-XII intact bilaterally Sensorium / Orientation: awake, alert, oriented to person, oriented to place and oriented to time Speech: speech normal Psych Appearance: grossly normal and appropriate Attitude: calm Activity / Motor Behavior: appropriate eye contact Speech: normal speech Mood & Affect: euthymic mood Thought Process: normal thought process Thought Content: normal thought content Attention / Concentration: attention grossly intact Debridement Note Debridement Note Wound debrided: Left buttock ulceration, stage III Laterality: Left Wound Grade/Stage: Stage III Type of Debridement: Excisional debridement Anesthesia Used: 5% Lidocaine Gel and Cetacaine Depth: Down to and including healthy tissue and in the subcutaneous layer Percentage of wound debrided: 100 Instrument Used: 3mm curette Tissue Removed: Bioburden Severity: Fat Layer Exposed Amount of bleeding with debridement: Mild Bleeding Controlled with: Compression and gauze Patient tolerated procedure: Patient tolerated procedure well Post-Debridement Measurements and Additional Note: Post-Debridement Measurements/Treatment - Nurse 1 - General Ulcer Assessment Start: 04/10/25 14:18 Freq: Status: Active Protocol: .COURTNEY Activity Type Activity Date Activity User E-sign Co-sign Detail Recorded Client Recorded Date Recorded By Document 04/10/25 14:18 KW [id number] 04/10/25 14:38 KW Edit Result 04/10/25 14:18 KW (1) [id number] 04/10/25 14:44 KW Document 04/17/25 14:17 BMF [id number] 04/17/25 14:24 BMF (1) Height => 5 ft 2 in Weight => 177 lb Weight in Pounds => 177.0 lbs Body Mass Index (BMI) => 32.3 BMI Classification => Obese 04/10/25 04/17/25 14:18 14:17 - Today's Visit Information Type of service Nurse-only Follow-up Visit Visit (Physician/HOME ENERGY CONSULTANT ) Arrival Mode Wheelchair Wheelchair Accompanied by Patient Identification Verified (Name & Yes Yes ) Height and Weight Height 5 ft 2 in Weight 177 lb Weight in Pounds 177.0 lbs Body Mass Index (BMI) 32.3 32.3 BMI Classification Obese Obese Vital Signs Temperature (97.8 F-99.1 F) 96.9 F L Temperature Source Temporal Respiratory Rate (12-18) 18 Respiratory rate source Observation Oxygen Delivery Method Room Air Blood Pressure (90/60-120/80) 122/58 H Blood Pressure Mean 79 Source Manual Position Sitting Blood Pressure Location Left Arm History Since Last Visit- (Skip if this is Patient's initial visit) Have you changed medications since your No last visit? Any new allergies or adverse reactions No Had a fall/change in ADL's that may No increase risk of falls Signs or symptoms of abuse and/or No neglect since last visit Have you been in the hospital since your No last visit? Has dressing in place as prescribed Yes Has compression in place as prescribed N/A Has offloadiing in place as prescribed N/A Experienced any changes in pain level or No management Left Footwear Regular Shoe Regular Shoe Right Footwear Regular Shoe Regular Shoe Pain Scale: 0-10 Numeric Is Patient Pain Free? No Yes Buttocks -Description Burning -Intensity 4 -Alleviating Factors/Interventions Medication, Medicate when due,Inactivity/ Resting,Turning /Repositioning -Comments itching Communication Assessment Preferred language [place] [employer] Required No Able to Read Yes Able to Write Yes Communication Tools None Caregiver Communication Skills No Impairment Impairment Right Hearing Abillity Normal Left Hearing Abillity Normal Visual Assistive Devices Glasses Teaching Assessment Preferences Verbal,Written, Demonstration Barriers to Learning None Readiness To Learn Excellent Willingness to Engage in Self Management High Activies Readiness to Engage in Self Management High Activities Anxiety Level Calm Cooperation Cooperative Perception Coherent Interest in Health Problem Asks Questions Education Importance Acknowledges Need Does Patient Smoke tobacco or other Yes substances Smoking Status Former smoker Is Patient Diabetic Yes Functional Assessment Recent Decline in Ability to Perform Denies Any Declines Culture/Scientology/Retina Subspecialist Cultural/Scientology Needs that may affect No Treatment Plan Would you allow our hospital composite mechanic to No meet you for the purpose of spiritual/ emotional support? Retina Subspecialist to contact place of holiness No WC - Nurse 1 - General Ulcer Measurement Start: 04/10/25 14:18 Freq: Status: Active Protocol: Activity Type Activity Date Activity User E-sign Co-sign Detail Recorded Client Recorded Date Recorded By Document 04/10/25 14:18 [id number] 04/10/25 14:38 Document 04/17/25 14:17 [facility] [id number] 04/17/25 14:24 [facility] 04/10/25 04/17/25 14:18 14:17 Wound Center Nurse 1 #1 lt buttock cluster -Combined with other wound No -Current Size (cm) - Length 2 0.5 -Current Size (cm) - Width 1 0.9 -Current Size (cm) - Depth 0.1 0.1 -Total Square Cm 2 0.45 -Date of Last Picture (Recall this 04/10/25 04/17/25 field) -Photo Taken Yes -Epithelialization Small 1-33% -Tunneling No -Undermining/Tunneling No -Circular Undermining No -Exudate Amt Small Medium -Exudate Type Serosanguineous Serosanguineous -Wound Margin Distinct, Flat & Intact Outline Attached -Granulation Amt Large (67-100%) Large (67-100%) -Granulation Quality [place],Red Red -Slough/Fibrin No -Necrosis Amt None Present (0 %) -Texture (Lynnette-wound Skin Appearance) Assessed Assessed -Moisture (Lynnette-wound Skin Appearance) Assessed,Dry/ Assessed,Dry/ Scaly Scaly -Color (Lynnette-wound Skin Appearance) Assessed Assessed -Temperature (Lynnette-wound Skin No Abnormality No Abnormality Appearance) (Pt Warm) (Pt Warm) -Tenderness on Palpation (Lynnette-wound No No Skin Appearance) -Ulcer Cleansing Soap and Water Rinsed/ Irrigated with Saline -Foul Odor after Cleansing No No -Anesthetic Used 5% Lidocaine 5% Lidocaine Gel Gel WC - Nurse 2 - General Ulcer CM Notes Start: 04/10/25 14:18 Freq: Status: Active Protocol: Activity Type Activity Date Activity User E-sign Co-sign Detail Recorded Client Recorded Date Recorded By Document 04/10/25 15:15 [id number] 04/10/25 15:25 Document 04/17/25 14:51 [id number] 04/17/25 14:52 04/10/25 04/17/25 15:15 14:51 Wound Center Nurse 2 #1 lt buttock cluster -Time 15:15 14:51 -Correct Patient Yes Yes -Correct Side, Site, Position Yes Yes -Correct Procedure Yes Yes -Procedure Performed Yes Yes -Type of Procedure Debridement Debridement -Clinical Debridement Subcutaneous Subcutaneous -Tissue Removed Subcutaneous Subcutaneous -Post Debridement (cm) - Length 1.5 0.3 -Post Debridement (cm) - Width 1.5 0.9 -Post Debridement (cm) - Depth 0.1 0.1 -Total Square (Post) (cm) 2.25 0.27 -Area of Debridement (cm) - Length 1.5 0.3 -Area of Debridement (cm) - Width 1.5 0.9 -Total Square (Area) (cm) 2.25 0.27 -Tunneling No No -Undermining/Tunneling No No -Circular Undermining No No -Wound/Ulcer Outcome Not Healed Not Healed -Ulcer Cleansing Not Cleansed Rinsed/ Irrigated with Saline -Foul Odor after Cleansing No No -Bioengineered Tissue No No -Bleeding Controlled with Pressure Pressure -Treatment Response Procedure Procedure Tolerated Well Tolerated Well -Offloading No No -Debridement - Subq, 1st 20sq cm Yes Yes Pain Scale: 0-10 Numeric Is Patient Pain Free? Yes Yes - Nurse 3 - General Ulcer D/C NN Start: 04/10/25 14:18 Freq: Status: Active Protocol: Activity Type Activity Date Activity User E-sign Co-sign Detail Recorded Client Recorded Date Recorded By Document 04/10/25 15:42 BM [id number] 04/10/25 15:43 BM Document 04/17/25 14:59 ML [id number] 04/17/25 15:01 ML 04/10/25 04/17/25 15:42 14:59 Wound Care Center Nurse 3 #1 lt buttock cluster -Ulcer Cleansing Rinsed/ Rinsed/ Irrigated with Irrigated with Saline Saline -Foul Odor after Cleansing No -Primary Dressing Applied Promogran, Promogran Silicone Border Foam 4x4 -Other Dressing pt brought own supplies -Promogran 2 0 -Silicone Border Foam 4x4 2 Treatment Response Procedure Tolerated Well Pain Scale: 0-10 Numeric Is Patient Pain Free? Yes Yes - Visit Discharge Discharge Condition Stable Ambulatory Status Wheelchair Transportation Private Auto Accompanied by Charges/Coding Procedures Integumentary [id number]: [id number] Sudha subq tissue 20 sq cm/< Assessment/Plan Assessment/Plan (1) Pressure ulcer of left buttock, stage 3: CODE(S): L89.323 - Pressure ulcer of left buttock, stage 3 (2) Long-term current use of steroids: (3) Jalil's granulomatosis: CODE(S): M31.30 - Jalil's granulomatosis without renal involvement QUALIFIERS: Granulomatosis renal involvement: with renal involvement Qualified Code(s): M31.31 - Jalil's granulomatosis with renal involvement (4) CKD (chronic kidney disease), stage III: CODE(S): N18.3 - Chronic kidney disease, stage 3 (moderate) (5) Prediabetes: CODE(S): R73.03 - Prediabetes (6) Paroxysmal atrial fibrillation: CODE(S): I48.0 - Paroxysmal atrial fibrillation (7) Non-ischemic cardiomyopathy: CODE(S): I42.8 - Other cardiomyopathies (8) Chronic combined systolic and diastolic CHF (congestive heart failure): CODE(S): I50.42 - Chronic combined systolic (congestive) and diastolic (c ongestive) heart failure (9) Nonsustained ventricular tachycardia: CODE(S): I47.2 - Ventricular tachycardia (10) Essential (primary) hypertension: CODE(S): I10 - Essential (primary) hypertension (11) Hyperlipemia: CODE(S): E78.5 - Hyperlipidemia, unspecified QUALIFIERS: Hyperlipidemia type: mixed hyperlipidemia Qualified Code(s): E78.2 - Mixed hyperlipidemia (12) Unspecified asthma, uncomplicated: CODE(S): J45.909 - Unspecified asthma, uncomplicated (13) 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: CODE(S): M31.30 - Jalil's granulomatosis without renal involvement (14) Osteoarthritis: CODE(S): M19.90 - Unspecified osteoarthritis, unspecified site (15) Fibromyalgia: CODE(S): M79.7 - Fibromyalgia (16) History of cardioversion: CODE(S): Z98.890 - Other specified postprocedural states (17) H/O total hysterectomy: CODE(S): Z90.710 - Acquired absence of both cervix and uterus (18) History of lumpectomy of right breast: CODE(S): Z98.890 - Other specified postprocedural states PLAN: Plan This is a 80-year-old female who presented with an ulceration on her left buttock, appearing to be a stage III pressure ulceration. The patient is of limited mobility, due to severe back problems, and is under the care of the Pain Management service. She spends long periods each day in a sitting position. We have discussed offloading measures in detail. We are to make attempts to obtain a Roho cushion for the patient in her wheelchair. She has also been advised to seek positions other than sitting to enhance offloading measures. The patient claims to take a well-balanced and nutritious diet, and has been urged to continue this practice. We are to continue the use of Promogran topically to the ulceration on the left buttock. This is to be covered with [place] SAP. The patient and her caregiver have been instructed in the appropriate means of application. The use of a barrier skin protectant has been recommended for use on the lynnette-ulcer area. Additionally, because of swelling in the patient's lower extremities. She has been advised to elevate her lower extremities to heart level, or higher, as much as possible. We have also discussed that the chronic use of a systemic steroid may impair the wound healing process. The patient is to return in 1 week for reevaluation. Total time: 26 minutes
== END 2025-04-22 23:59 | disposition home or self-care (01) ==
LOC: WC 14:45
PROVIDERS: PCP Internal Medicine; Referring Provider Internal Medicine; Visit Provider Surgery
DX: L89.323 Pressure ulcer of left buttock, stage 3 (principal); M31.31 Wegener's granulomatosis with renal involvement; I50.42 Chronic combined systolic (congestive) and diastolic (congestive) heart failure; I13.0 Hypertensive heart and chronic kidney disease with heart failure and stage 1 through stage 4 chronic kidney disease, or unspecified chronic kidney disease; I48.0 Paroxysmal atrial fibrillation; I47.20 Ventricular tachycardia, unspecified; I42.8 Other cardiomyopathies; N18.30 Chronic kidney disease, stage 3 unspecified; M19.90 Unspecified osteoarthritis, unspecified site; Z79.51 Long term (current) use of inhaled steroids; M79.7 Fibromyalgia; Z87.891 Personal history of nicotine dependence; Z79.52 Long term (current) use of systemic steroids; Z79.01 Long term (current) use of anticoagulants; R73.03 Prediabetes; E78.2 Mixed hyperlipidemia; Z90.710 Acquired absence of both cervix and uterus; J45.909 Unspecified asthma, uncomplicated; Z85.3 Personal history of malignant neoplasm of breast; Z98.890 Other specified postprocedural states
CPT/HCPCS: 11042; 99203; 99204; G0463

== ENCOUNTER 2025-05-14 14:00 | Outpatient (RCR) | payer MEDICARE, BC, SELFPAY ==
--- NOTE | 2025-04-24 08:37 | WC ---
PHOTO 04/23/25 LEFT BUTTOCKS
--- NOTE | 2025-04-25 17:15 | HP.PCM_ITS ---
History of Present Illness Date of Service: 04/23/25 Chief Complaint: Pressure ulceration of the left buttock, stage III History of Wound: This is a 80-year-old female who presented with an ulceration on the left buttock. The ulceration had been present for approximately 2 to 3 months. It appeared to be pressure related. The patient is limited in ambulation, and requires the use of a walker. She sits for long periods each day. She claims to sleep on a flat mattress at night. However, she can only lay on her back, and is unable to assume the lateral decubitus position due to chronic back problems. She is under the care of Pain Management, and is scheduled to undergo injection procedures in the near future. She uses a foam cushion on her wheelchair. She had been using Calmoseptine and Neosporin topically on the ulcer site. She is on long-term systemic anticoagulation with Eliquis due to atrial fibrillation. 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 As result, she is prediabetic. Because of her predilection to long periods of sitting, she also experiences swelling in her lower extremities. 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 Unspecified asthma, uncomplicated Osteoarthritis Breast cancer, right breast Fibromyalgia Obesity Essential (primary) hypertension Hyperlipemia Jalil's granulomatosis Home Medications Medication Instructions Recorded Last Taken Type atorvastatin 20 mg tablet 20 mg PO QHS 09/18/19 Unknow n History calcium 600 mg (as 1 cap PO DAILY 09/18/19 Unkn own History carbonate)-vitamin D3 5 mcg (200 unit) capsule (Calcium 600 + D(3)) glipizide 5 mg tablet (Glucotrol) 5 mg PO BID 09/18/19 Unknown History potassium chloride 20 mEq 20 meq PO DAILY #30 tabs 10/22/19 Rx tablet,extended release rituximab 10 mg/mL mg .Route 06/21/20 Unknown H istory concentrate,intravenous (Rituxan) esomeprazole magnesium 40 mg 40 mg PO DAILY 12/08/21 U nknown History capsule,delayed release (Nexium) ferrous sulfate 325 mg (65 mg 325 mg PO BID 12/08/21 U nknown History iron) tablet sulfamethoxazole 800 1 tab PO MOWEFR 03/24/22 Unk nown History mg-trimethoprim 160 mg tablet (Bactrim DS) albuterol sulfate 2.5 mg/3 mL 2.5 mg inhalation Q4H DC N 04/19/24 Unknown History (0.083 %) solution for nebulization shortness of breat h or wheezing albuterol sulfate 90 mcg/actuation 2 puff inhalation Q 4H PRN 04/19/24 Unknown History aerosol inhaler (ProAir HFA) shortness of breath or wh eezing diclofenac sodium 1 % topical gel 2 g topical 4XD PRN 04/19/24 Unknown History (Arthritis Pain (diclofenac)) fluticasone 500 mcg-salmeterol 50 inhalation 04/19/24 Unknown History mcg/dose blistr powdr for inhalation (Wixela Inhub) hydroquinone 4 % topical cream 1 applic topical BID DC N 04/19/24 Unknown History hyoscyamine sulfate 0.125 mg tablet 0.125 mg PO BID-QI D PRN 04/19/24 Unknown History loratadine 10 mg tablet (Claritin) 10 mg PO DAILY 03/25 05/16 Unknown History multivitamin 1 tab PO DAILY 04/19/24 Unkn own History nystatin 100,000 unit/gram topical 1 applic topical BI D 04/19/24 Unknown History cream prednisone 5 mg tablet 5 mg PO QDAY 04/19/24 Unknow n History tizanidine 4 mg tablet 4 mg PO TID PRN muscle spast icity 04/19/24 Unknown History amiodarone 100 mg tablet 100 mg PO DAILY #90 tabs Unknown Rx apixaban 5 mg tablet (Eliquis) See Rx Instructions .[facility] [place] 12/05/24 Unknown Rx .COMPLEX #180 tabs furosemide 40 mg tablet 40 mg PO DAILY #90 tabs 02/22 12/18 Unknown Rx losartan 25 mg tablet 25 mg PO DAILY #90 tabs 12/18 Unknown Rx metoprolol tartrate 100 mg tablet 100 mg PO BID #180 T ABLETS 04/23/25 Unknown Rx Allergy/AdvReac Type Severity Reaction Status Date / Time adhesive tape Allergy Intermediate skin Verified 04/10/25 14:40 irritation montelukast (From Singulair) Allergy Unknown Swelling Verified 04/10/25 14:40 UM Inhibitors Allergy swelling Verified 04/10/25 14:40 Surgical History History of cardioversion (10/22/19) H/O total hysterectomy History of lumpectomy of right breast (2002) Social History Smoking Status: Former smoker how long ago did patient quit smokin years alcohol intake: current alcohol intake frequency: holidays/special occasions only substance use type: does not use caffeine: Yes Type: tea Physical Exam Const alert, oriented x3, no apparent distress and well nourished Constitutional Narrative: Patient's BMI is 32.4. The patient is limited in her mobility due to back pain. General Appearance: cooperative, comfortable and well developed Orientation / Consciousness: awake, oriented to person, oriented to place and oriented to time HEENT normocephalic and head/scalp atraumatic Head and Scalp: normal to inspection, normocephalic and atraumatic Nose: external nose normal External Ear: external ears normal Eyes EOMs intact bilaterally General Eye: normal appearance of both eyes Resp normal respiratory effort, normal air movement, no retractions and no use of accessory muscles Effort and Inspection: able to speak in complete sentences Extremity Extremity Narrative: Moderate swelling is noted in the lower extremities bilaterally. Skin Wound Narrative: An ulceration is noted on the patient's left buttock. It appears to be a stage III pressure ulceration, extending through all layers of the dermis and into the subcutaneous tissues. There is no sign of infection or cellulitis. The base of the ulceration demonstrates a small amount of bioburden and residual Promogran. Ulcer margins are well beveled. The ulceration is little changed in size, and dimensions are documented elsewhere. The lynnette-ulcer eczematous changes have improved significantly. Neuro oriented x3, CN's II-XII intact bilaterally and moves all extremities Sensorium / Orientation: awake, alert, oriented to person, oriented to place and oriented to time Speech: speech normal Psych Appearance: grossly normal and appropriate Attitude: calm Activity / Motor Behavior: appropriate eye contact Speech: normal speech Mood & Affect: euthymic mood Thought Process: normal thought process Thought Content: normal thought content Attention / Concentration: attention grossly intact Debridement Note Debridement Note Wound debrided: Left buttock ulceration, stage III Laterality: Left Wound Grade/Stage: Stage III Type of Debridement: Excisional debridement Anesthesia Used: 5% Lidocaine Gel and Cetacaine Depth: Down to and including healthy tissue and in the subcutaneous layer Percentage of wound debrided: 100 Instrument Used: 3mm curette Tissue Removed: Bioburden and residual Promogran Severity: Fat Layer Exposed Amount of bleeding with debridement: Mild Bleeding Controlled with: Compression and gauze Patient tolerated procedure: Patient tolerated procedure well Post-Debridement Measurements and Additional Note: Post-Debridement Measurements/Treatment [facility] Nurse 1 - General Ulcer Assessment Start: 04/23/25 10:54 Freq: Status: Active Protocol: NAM Activity Type Activity Date Activity User E-sign Co-sign Detail Recorded Client Recorded Date Recorded By Document 04/23/25 10:54 KW [id number] 04/23/25 10:56 04/23/25 10:54 - Today's Visit Information Type of service Follow-up Visit (Physician/CRIMP [facility]TER ) Arrival Mode Wheelchair Accompanied by Patient Identification Verified (Name & Yes ) History Since Last Visit- (Skip if this is Patient's initial visit) Have you changed medications since your No last visit? Any new allergies or adverse reactions No Had a fall/change in ADL's that may No increase risk of falls Signs or symptoms of abuse and/or No neglect since last visit Have you been in the hospital since your No last visit? Has dressing in place as prescribed Yes Has compression in place as prescribed N/A Has offloadiing in place as prescribed N/A Experienced any changes in pain level or No management Left Footwear Regular Shoe Right Footwear Regular Shoe Pain Scale: 0-10 Numeric Is Patient Pain Free? Yes [facility] Nurse 1 - General Ulcer Measurement Start: 04/23/25 10:54 Freq: Status: Active Protocol: Activity Type Activity Date Activity User E-sign Co-sign Detail Recorded Client Recorded Date Recorded By Document 04/23/25 10:54 KW [id number] 04/23/25 10:56 KW 04/23/25 10:54 Wound Center Nurse 1 #1 lt buttock cluster -Current Size (cm) - Length 0.1 -Current Size (cm) - Width 0.1 -Current Size (cm) - Depth 0 -Total Square Cm 0.01 -Date of Last Picture (Recall this 04/23/25 field) -Wound Margin Distinct, Outline Attached -Granulation Amt Large (67-100%) -Granulation Quality [place] -Texture (Lynnette-wound Skin Appearance) Assessed -Moisture (Lynnette-wound Skin Appearance) Assessed -Color (Lynnette-wound Skin Appearance) Assessed -Temperature (Lynnette-wound Skin No Abnormality Appearance) (Pt Warm) -Tenderness on Palpation (Lynnette-wound No Skin Appearance) -Ulcer Cleansing Rinsed/ Irrigated with Saline -Foul Odor after Cleansing No -Anesthetic Used 5% Lidocaine Gel WC - Nurse 2 - General Ulcer CM Notes Start: 04/23/25 10:54 Freq: Status: Active Protocol: Activity Type Activity Date Activity User E-sign Co-sign Detail Recorded Client Recorded Date Recorded By Document 04/23/25 11:38 DS [id number] 04/23/25 11:40 DS 04/23/25 11:38 Wound Center Nurse 2 -Time 11:38 -Correct Patient Yes -Correct Side, Site, Position Yes -Correct Procedure Yes -Procedure Performed Yes -Type of Procedure Debridement -Clinical Debridement Subcutaneous -Tissue Removed Subcutaneous -Post Debridement (cm) - Length 0.5 -Post Debridement (cm) - Width 1.1 -Post Debridement (cm) - Depth 0.1 -Total Square (Post) (cm) 0.55 -Area of Debridement (cm) - Length 0.5 -Area of Debridement (cm) - Width 1.0 -Total Square (Area) (cm) 0.50 -Tunneling No -Undermining/Tunneling No -Circular Undermining No -Wound/Ulcer Outcome Not Healed -Ulcer Cleansing gauze -Foul Odor after Cleansing No -Bioengineered Tissue No -Bleeding Controlled with Pressure -Treatment Response Procedure Tolerated Well -Debridement - Subq, 1st 20sq cm Yes Pain Scale: 0-10 Numeric Is Patient Pain Free? Yes JOSE DANIEL - Nurse 3 - General Ulcer D/C NN Start: 04/23/25 10:54 Freq: Status: Active Protocol: Activity Type Activity Date Activity User E-sign Co-sign Detail Recorded Client Recorded Date Recorded By Document 04/23/25 11:46 VINICIO [id number] 04/23/25 11:47 VINICIO 04/23/25 11:46 Wound Care Center Nurse 3 #1 lt buttock cluster -Other Dressing pt own promagran moistened, protect skin with barrier and cover excel sap -Wound Comment(s) dressings used are all pt owned Pain Scale: 0-10 Numeric Is Patient Pain Free? Yes WC - Visit Discharge Discharge Condition Stable Ambulatory Status Wheelchair Transportation Private Auto Medication Reconcilliation completed & No provided to patient/care provider Clinical Summary of Care Provided Yes Charges/Coding Procedures Integumentary [id number]: [id number] Sudha subq tissue 20 sq cm/< Assessment/Plan Assessment/Plan (1) Pressure ulcer of left buttock, stage 3: CODE(S): L89.323 - Pressure ulcer of left buttock, stage 3 (2) Long-term current use of steroids: (3) Jalil's granulomatosis: CODE(S): M31.30 - Jalil's granulomatosis without renal involvement QUALIFIERS: Granulomatosis renal involvement: with renal involvement Qualified Code(s): M31.31 - Jalil's granulomatosis with renal involvement (4) CKD (chronic kidney disease), stage III: CODE(S): N18.3 - Chronic kidney disease, stage 3 (moderate) (5) Prediabetes: CODE(S): R73.03 - Prediabetes (6) Paroxysmal atrial fibrillation: CODE(S): I48.0 - Paroxysmal atrial fibrillation (7) Non-ischemic cardiomyopathy: CODE(S): I42.8 - Other cardiomyopathies (8) Chronic combined systolic and diastolic CHF (congestive heart failure): CODE(S): I50.42 - Chronic combined systolic (congestive) and diastolic (congestive) heart failure (9) Nonsustained ventricular tachycardia: CODE(S): I47.2 - Ventricular tachycardia (10) Essential (primary) hypertension: CODE(S): I10 - Essential (primary) hypertension (11) Hyperlipemia: CODE(S): E78.5 - Hyperlipidemia, unspecified QUALIFIERS: Hyperlipidemia type: mixed hyperlipidemia Qualified Code(s): E78.2 - Mixed hyperlipidemia (12) Unspecified asthma, uncomplicated: CODE(S): J45.909 - Unspecified asthma, uncomplicated (13) 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: CODE(S): M31.30 - Jalil's granulomatosis without renal involvement (14) Osteoarthritis: CODE(S): M19.90 - Unspecified osteoarthritis, unspecified site (15) Fibromyalgia: CODE(S): M79.7 - Fibromyalgia (16) History of cardioversion: CODE(S): Z98.890 - Other specified postprocedural states (17) H/O total hysterectomy: CODE(S): Z90.710 - Acquired absence of both cervix and uterus (18) History of lumpectomy of right breast: CODE(S): Z98.890 - Other specified postprocedural states (19) Chronic anticoagulation: CODE(S): Z79.01 - long term care phlebotomist (current) use of anticoagulants PLAN: Plan This is a 80-year-old female who presented with an ulceration on her left buttock, appearing to be a stage III pressure ulceration. The patient is of limited mobility, due to severe back problems, and is under the care of the Pain Management service. She spends long periods each day in a sitting position. We have discussed offloading measures in detail. We are attempting to obtain a Roho cushion for the patient's wheelchair. She has also been advised to seek positions other than sitting to enhance offloading measures. The patient claims to take a well-balanced and nutritious diet, and has been urged to continue this practice. We are to continue the use of Promogran topically to the ulceration o n the left buttock. This is to be covered with [place] SAP. The patient and her caregiver have been instructed in the appropriate means of application. The use of a barrier skin protectant has been recommended for use on the lynnette-ulcer area. Additionally, because of swelling in the patient's lower extremities, she has been advised to elevate her lower extremities to heart level, or higher, as much as possible. We have also discussed that the chronic use of a systemic steroid may impair the wound healing process. The patient is to return in 1 week for reevaluation. Total time: 24 minutes
--- NOTE | 2025-05-01 08:58 | WC ---
PHOTO 04/30/25 LEFT BUTTOCKS
--- NOTE | 2025-05-01 08:58 | WC ---
PHOTO 04/30/25 LEFT BUTTOCK
--- NOTE | 2025-05-05 16:43 | PCM.WC.HP ---
History of Present Illness Date of Service: 04/30/25 Chief Complaint: Pressure ulceration of the left buttock, stage III History of Wound: This is a 80-year-old female who presented with an ulceration on the left buttock. The ulceration had been present for approximately 2 to 3 months. It appeared to be pressure related. The patient is limited in ambulation, and requires the use of a walker. She sits for long periods each day. She claims to sleep on a flat mattress at night. However, she can only lay on her back, and is unable to assume the lateral decubitus position due to chronic back problems. She is under the care of Pain Management, and is scheduled to undergo injection procedures in the near future. She uses a foam cushion on her wheelchair. She had been using Calmoseptine and Neosporin topically on the ulcer site. She is on long-term systemic anticoagulation with Eliquis due to atrial fibrillation. 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 As result, she is prediabetic. Because of her predilection to long periods of sitting, she also experiences swelling in her lower extremities. 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 Unspecified asthma, uncomplicated Osteoarthritis Breast cancer, right breast Fibromyalgia Obesity Essential (primary) hypertension Hyperlipemia Jalil's granulomatosis Home Medications Medication Instructions Recorded Last Taken Type atorvastatin 20 mg tablet 20 mg PO QHS 09/18/19 Unknown History calcium 600 mg (as 1 cap PO DAILY 09/18/19 Unknown History carbonate)-vitamin D3 5 mcg (200 unit) capsule (Calcium 600 + D(3)) glipizide 5 mg tablet (Glucotrol) 5 mg PO BID 09/18/19 Unknown History potassium chloride 20 mEq 20 meq PO DAILY #30 tabs 09/19/19 10/22/19 Rx tablet,extended release rituximab 10 mg/mL mg .Route 06/21/20 Unknown History concentrate,intravenous (Rituxan) esomeprazole magnesium 40 mg 40 mg PO DAILY 12/08/21 Unknown History capsule,delayed release (Nexium) ferrous sulfate 325 mg (65 mg 325 mg PO BID 12/08/21 Unknown History iron) tablet sulfamethoxazole 800 1 tab PO MOWEFR 03/24/22 Unknown History mg-trimethoprim 160 mg tablet (Bactrim DS) albuterol sulfate 2.5 mg/3 mL 2.5 mg inhalation Q4H PRN 04/19/24 Unknown History (0.083 %) solution for nebulization shortness of breath or wheezing albuterol sulfate 90 mcg/actuation 2 puff inhalation Q4H PRN 04/19/24 Unknown History aerosol inhaler (ProAir HFA) shortness of breath or wheezing diclofenac sodium 1 % topical gel 2 g topical 4XD PRN 04/19/24 Unknown History (Arthritis Pain (diclofenac)) fluticasone 500 mcg-salmeterol 50 inhalation 04/19/24 Unknown History mcg/dose blistr powdr for inhalation (Abiolaela Inhub) hydroquinone 4 % topical cream 1 applic topical BID PRN 04/19/24 Unknown History hyoscyamine sulfate 0.125 mg tablet 0.125 mg PO BID-QID PRN 04/19/24 Unknown History loratadine 10 mg tablet (Claritin) 10 mg PO DAILY 04/19/24 Unknown History multivitamin 1 tab PO DAILY 04/19/24 Unknown History nystatin 100,000 unit/gram topical 1 applic topical BID 04/19/24 Unknown History cream prednisone 5 mg tablet 5 mg PO QDAY 04/19/24 Unknown History tizanidine 4 mg tablet 4 mg PO TID PRN muscle spasticity 04/19/24 Unknown History amiodarone 100 mg tablet 100 mg PO DAILY #90 tabs 10/22/24 Unknown Rx apixaban 5 mg tablet (Eliquis) See Rx Instructions .Route 12/05/24 Unknown Rx .COMPLEX #180 tabs furosemide 40 mg tablet 40 mg PO DAILY #90 tabs 03/14/25 Unknown Rx losartan 25 mg tablet 25 mg PO DAILY #90 tabs 03/25/25 Unknown Rx metoprolol tartrate 100 mg tablet 100 mg PO BID #180 TABLETS 04/23/25 Unknown Rx Allergy/AdvReac Type Severity Reaction Status Date / Time adhesive tape Allergy Intermediate skin Verified 04/10/25 14:40 irritation montelukast (From Singulair) Allergy Unknown Swelling Verified 04/10/25 14:40 MU Inhibitors Allergy swelling Verified 04/10/25 14:40 Surgical History History of cardioversion (10/22/19) H/O total hysterectomy History of lumpectomy of right breast (2002) Social History Smoking Status: Former smoker how long ago did patient quit smokin years alcohol intake: current alcohol intake frequency: holidays/special occasions only substance use type: does not use caffeine: Yes Type: tea Physical Exam Const alert, oriented x3, no apparent distress and well nourished Constitutional Narrative: Patient's BMI is 32.4. The patient is limited in her mobility due to back pain. General Appearance: cooperative, comfortable and well developed Orientation / Consciousness: awake, oriented to person, oriented to place and oriented to time HEENT normocephalic and head/scalp atraumatic Head and Scalp: normal to inspection, normocephalic and atraumatic Nose: external nose normal External Ear: external ears normal Eyes EOMs intact bilaterally General Eye: normal appearance of both eyes Resp normal respiratory effort, normal air movement, no retractions and no use of accessory muscles Effort and Inspection: able to speak in complete sentences Extremity Extremity Narrative: Moderate swelling is noted in the lower extremities bilaterally. Skin Wound Narrative: An ulceration is noted on the patient's left buttock. It appears to be a stage III pressure ulceration, extending through all layers of the dermis and into the subcutaneous tissues. There is no sign of infection or cellulitis. The base of the ulceration demonstrates a small amount of bioburden, but is otherwise pink and healthy in appearance. Ulcer margins are well beveled. The ulceration is slightly smaller in size, and nearly healed. Dimensions are documented elsewhere. Neuro oriented x3, CN's II-XII intact bilaterally and moves all extremities Sensorium / Orientation: awake, alert, oriented to person, oriented to place and oriented to time Speech: speech normal Psych Appearance: grossly normal and appropriate Attitude: calm Activity / Motor Behavior: appropriate eye contact Speech: normal speech Mood & Affect: euthymic mood Thought Process: normal thought process Thought Content: normal thought content Attention / Concentration: attention grossly intact Debridement Note Debridement Note Wound debrided: Left buttock ulceration, stage III Laterality: Left Wound Grade/Stage: Stage III Type of Debridement: Excisional debridement Anesthesia Used: 5% Lidocaine Gel and Cetacaine Depth: Down to and including healthy tissue and in the subcutaneous layer Percentage of wound debrided: 100 Instrument Used: 3mm curette Tissue Removed: Bioburden Severity: Fat Layer Exposed Amount of bleeding with debridement: Mild Bleeding Controlled with: Compression and gauze Patient tolerated procedure: Patient tolerated procedure well Post-Debridement Measurements and Additional Note: Post-Debridement Measurements/Treatment - Nurse 1 - General Ulcer Assessment Start: 04/23/25 10:54 Freq: Status: Active Protocol: NAM Activity Type Activity Date Activity User E-sign Co-sign Detail Recorded Client Recorded Date Recorded By Document 04/23/25 10:54 [id number] 04/23/25 10:56 Document 04/30/25 11:22 [facility] [id number] 04/30/25 11:30 [facility] 04/23/25 04/30/25 10:54 11:22 - Today's Visit Information Type of service Follow-up Visit Follow-up Visit (Physician/LEAD APPLICATIONS DEVELOPER (Physician/LEAD APPLICATIONS DEVELOPER ) ) Arrival Mode Wheelchair Stretcher Transfer Assistance Other Transfer Assist (Other) stand by Accompanied by Patient Identification Verified (Name & Yes Yes ) Patient Requires Transmission-Based No Precautions Vital Signs Comment refuses History Since Last Visit- (Skip if this is Patient's initial visit) Have you changed medications since your No No last visit? Any new allergies or adverse reactions No No Had a fall/change in ADL's that may No No increase risk of falls Signs or symptoms of abuse and/or No No neglect since last visit Have you been in the hospital since your No No last visit? Has dressing in place as prescribed Yes Yes Has compression in place as prescribed N/A N/A Has offloadiing in place as prescribed N/A N/A Experienced any changes in pain level or No No management Left Footwear Regular Shoe Regular Shoe Right Footwear Regular Shoe Regular Shoe Pain Scale: 0-10 Numeric Is Patient Pain Free? Yes Yes [facility] Nurse 1 - General Ulcer Measurement Start: 04/23/25 10:54 Freq: Status: Active Protocol: Activity Type Activity Date Activity User E-sign Co-sign Detail Recorded Client Recorded Date Recorded By Document 04/23/25 10:54 KW [id number] 04/23/25 10:56 KW Document 04/30/25 11:22 [facility] [id number] 04/30/25 11:30 [facility] 04/23/25 04/30/25 10:54 11:22 Wound Center Nurse 1 #1 lt buttock cluster -Combined with other wound No -Current Size (cm) - Length 0.1 0.2 -Current Size (cm) - Width 0.1 0.4 -Current Size (cm) - Depth 0 0.1 -Total Square Cm 0.01 0.08 -Date of Last Picture (Recall this 04/23/25 04/30/25 field) -Photo Taken Yes -Epithelialization Small 1-33% -Tunneling No -Undermining/Tunneling No -Circular Undermining No -Exudate Amt Medium -Exudate Type Sanguineous -Wound Margin Distinct, Distinct, Outline Outline Attached Attached -Granulation Amt Large (67-100%) Large (67-100%) -Granulation Quality [place] Red -Slough/Fibrin No -Necrosis Amt None Present (0 %) -Texture (Lynnette-wound Skin Appearance) Assessed Assessed, Scarring -Moisture (Lynnette-wound Skin Appearance) Assessed Assessed -Color (Lynnette-wound Skin Appearance) Assessed Assessed -Temperature (Lynnette-wound Skin No Abnormality No Abnormality Appearance) (Pt Warm) (Pt Warm) -Tenderness on Palpation (Lynnette-wound No No Skin Appearance) -Ulcer Cleansing Rinsed/ Rinsed/ Irrigated with Irrigated with Saline Saline -Foul Odor after Cleansing No No -Anesthetic Used 5% Lidocaine 5% Lidocaine Gel Gel WC - Nurse 2 - General Ulcer CM Notes Start: 04/23/25 10:54 Freq: Status: Active Protocol: Activity Type Activity Date Activity User E-sign Co-sign Detail Recorded Client Recorded Date Recorded By Document 04/23/25 11:38 DS [id number] 04/23/25 11:40 DS Document 04/30/25 11:40 DS [id number] 04/30/25 11:41 DS 04/23/25 04/30/25 11:38 11:40 Wound Center Nurse 2 #1 lt buttock cluster -Time 11:38 11:40 -Correct Patient Yes Yes -Correct Side, Site, Position Yes Yes -Correct Procedure Yes Yes -Procedure Performed Yes Yes -Type of Procedure Debridement Debridement -Clinical Debridement Subcutaneous Subcutaneous -Tissue Removed Subcutaneous Subcutaneous -Post Debridement (cm) - Length 0.5 0.4 -Post Debridement (cm) - Width 1.1 0.6 -Post Debridement (cm) - Depth 0.1 0.1 -Total Square (Post) (cm) 0.55 0.24 -Area of Debridement (cm) - Length 0.5 0.4 -Area of Debridement (cm) - Width 1.0 0.6 -Total Square (Area) (cm) 0.50 0.24 -Tunneling No No -Undermining/Tunneling No No -Circular Undermining No No -Wound/Ulcer Outcome Not Healed Not Healed -Ulcer Cleansing gauze -Foul Odor after Cleansing No No -Bioengineered Tissue No No -Bleeding Controlled with Pressure Pressure -Treatment Response Procedure Procedure Tolerated Well Tolerated Well -Debridement - Subq, 1st 20sq cm Yes Yes Pain Scale: 0-10 Numeric Is Patient Pain Free? Yes Yes - Nurse 3 - General Ulcer D/C NN Start: 04/23/25 10:54 Freq: Status: Active Protocol: Activity Type Activity Date Activity User E-sign Co-sign Detail Recorded Client Recorded Date Recorded By Document 04/23/25 11:46 [id number] 04/23/25 11:47 Document 04/30/25 11:51 [facility] [id number] 04/30/25 11:52 [facility] 04/23/25 04/30/25 11:46 11:51 Wound Care Center Nurse 3 #1 lt buttock cluster -Ulcer Cleansing Rinsed/ Irrigated with Saline -Foul Odor after Cleansing No -Other Dressing pt own excel sap, promagran lien moistened, protect skin with barrier and cover excel sap -Wound Comment(s) dressings used pt brought new are all pt supplies from owned home Treatment Response Procedure Tolerated Well Pain Scale: 0-10 Numeric Is Patient Pain Free? Yes Yes - Visit Discharge Discharge Condition Stable Stable Ambulatory Status Wheelchair Wheelchair Transportation Private Auto Private Auto Accompanied by Medication Reconcilliation completed & No provided to patient/care provider Clinical Summary of Care Provided Yes Charges/Coding Procedures Integumentary [id number]: [id number] Sudha subq tissue 20 sq cm/< Assessment/Plan Assessment/Plan (1) Pressure ulcer of left buttock, stage 3: CODE(S): L89.323 - Pressure ulcer of left buttock, stage 3 (2) Long-term current use of steroids: (3) Jalil's granulomatosis: CODE(S): M31.30 - Jalil's granulomatosis without renal involvement QUALIFIERS: Granulomatosis renal involvement: with renal involvement Qualified Code(s): M31.31 - Jalil's granulomatosis with renal involvement (4) CKD (chronic kidney disease), stage III: CODE(S): N18.3 - Chronic kidney disease, stage 3 (moderate) (5) Prediabetes: CODE(S): R73.03 - Prediabetes (6) Paroxysmal atrial fibrillation: CODE(S): I48.0 - Paroxysmal atrial fibrillation (7) Non-ischemic cardiomyopathy: CODE(S): I42.8 - Other cardiomyopathies (8) Chronic combined systolic and diastolic CHF (congestive heart failure): CODE(S): I50.42 - Chronic combined systolic (congestive) and diastolic (congestive) heart failure (9) Nonsustained ventricular tachycardia: CODE(S): I47.2 - Ventricular tachycardia (10) Essential (primary) hypertension: CODE(S): I10 - Essential (primary) hypertension (11) Hyperlipemia: CODE(S): E78.5 - Hyperlipidemia, unspecified QUALIFIERS: Hyperlipidemia type: mixed hyperlipidemia Qualified Code(s): E78.2 - Mixed hyperlipidemia (12) Unspecified asthma, uncomplicated: CODE(S): J45.909 - Unspecified asthma, uncomplicated (13) 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: CODE(S): M31.30 - Jalil's granulomatosis without renal involvement (14) Osteoarthritis: CODE(S): M19.90 - Unspecified osteoarthritis, unspecified site (15) Fibromyalgia: CODE(S): M79.7 - Fibromyalgia (16) History of cardioversion: CODE(S): Z98.890 - Other specified postprocedural states (17) H/O total hysterectomy: CODE(S): Z90.710 - Acquired absence of both cervix and uterus (18) History of lumpectomy of right breast: CODE(S): Z98.890 - Other specified postprocedural states (19) Chronic anticoagulation: CODE(S): Z79.01 - emt intermediate (current) use of anticoagulants PLAN: Plan This is a 80-year-old female who presented with an ulceration on her left buttock, appearing to be a stage III pressure ulceration. The patient is of limited mobility, due to severe back problems, and is under the care of the Pain Management service. She spends long periods each day in a sitting position. We have discussed offloading measures in detail. We are attempting to obtain a Roho cushion for the patient's wheelchair. She has also been advised to seek positions other than sitting to enhance offloading measures. The patient claims to take a well-balanced and nutritious diet, and has been urged to continue this practice. We are to continue the use of Promogran topically to the ulceration on the left buttock. This is to be covered with [place] SAP. The patient and her caregiver have been instructed in the appropriate means of application. The use of a barrier skin protectant has been recommended for use on the lynnette-ulcer area. Additionally, because of swelling in the patient's lower extremities, she has been advised to elevate her lower extremities to heart level, or higher, as much as possible. We have also discussed that the chronic use of a systemic steroid may impair the wound healing process. The patient is to return in 1 week for reevaluation. Total time: 25 minutes
--- NOTE | 2025-05-08 13:42 | WC ---
PHOTO 05/07/25 LEFT BUTTOCKS
--- NOTE | 2025-05-09 13:33 | PCM.WC.HP ---
History of Present Illness Date of Service: 05/07/25 Chief Complaint: Pressure ulceration of the left buttock, stage III History of Wound: This is a 80-year-old female who presented with an ulceration on the left buttock. The ulceration had been present for approximately 2 to 3 months. It appeared to be pressure related. The patient is limited in ambulation, and requires the use of a walker. She sits for long periods each day. She claims to sleep on a flat mattress at night. However, she can only lay on her back, and is unable to assume the lateral decubitus position due to chronic back problems. She is under the care of Pain Management, and is scheduled to undergo injection procedures in the near future. She uses a foam cushion on her wheelchair. She had been using Calmoseptine and Neosporin topically on the ulcer site. She is on long-term systemic anticoagulation with Eliquis due to atrial fibrillation. 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 As result, she is prediabetic. Because of her predilection to long periods of sitting, she also experiences swelling in her lower extremities. [facility] Medical History (Updated 05/09/25 @ 13:[address] 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 Unspecified asthma, uncomplicated Osteoarthritis Breast cancer, right breast Fibromyalgia Obesity Essential (primary) hypertension Hyperlipemia Jalil's granulomatosis Home Medications Medication Instructions Recorded Last Taken Type atorvastatin 20 mg tablet 20 mg PO QHS 09/18/19 Unknown History calcium 600 mg (as 1 cap PO DAILY 09/18/19 Unknown History carbonate)-vitamin D3 5 mcg (200 unit) capsule (Calcium 600 + D(3)) glipizide 5 mg tablet (Glucotrol) 5 mg PO BID 09/18/19 Unknown History potassium chloride 20 mEq 20 meq PO DAILY #30 tabs 09/19/19 10/22/19 Rx tablet,extended release rituximab 10 mg/mL mg .Route 06/21/20 Unknown History concentrate,intravenous (Rituxan) esomeprazole magnesium 40 mg 40 mg PO DAILY 12/08/21 Unknown History capsule,delayed release (Nexium) ferrous sulfate 325 mg (65 mg 325 mg PO BID 12/08/21 Unknown History iron) tablet sulfamethoxazole 800 1 tab PO MOWEFR 03/24/22 Unknown History mg-trimethoprim 160 mg tablet (Bactrim DS) albuterol sulfate 2.5 mg/3 mL 2.5 mg inhalation Q4H PRN 04/19/24 Unknown History (0.083 %) solution for nebulization shortness of breath or wheezing albuterol sulfate 90 mcg/actuation 2 puff inhalation Q4H PRN 04/19/24 Unknown History aerosol inhaler (ProAir HFA) shortness of breath or wheezing diclofenac sodium 1 % topical gel 2 g topical 4XD PRN 04/19/24 Unknown History (Arthritis Pain (diclofenac)) fluticasone 500 mcg-salmeterol 50 inhalation 04/19/24 Unknown History mcg/dose blistr powdr for inhalation (Timothyxela Inhub) hydroquinone 4 % topical cream 1 applic topical BID PRN 04/19/24 Unknown History hyoscyamine sulfate 0.125 mg tablet 0.125 mg PO BID-QID PRN 04/19/24 Unknown History loratadine 10 mg tablet (Claritin) 10 mg PO DAILY 04/19/24 Unknown History multivitamin 1 tab PO DAILY 04/19/24 Unknown History nystatin 100,000 unit/gram topical 1 applic topical BID 04/19/24 Unknown History cream prednisone 5 mg tablet 5 mg PO QDAY 04/19/24 Unknown History tizanidine 4 mg tablet 4 mg PO TID PRN muscle spasticity 04/19/24 Unknown History amiodarone 100 mg tablet 100 mg PO DAILY #90 tabs 10/22/24 Unknown Rx apixaban 5 mg tablet (Eliquis) See Rx Instructions .Route 12/05/24 Unknown Rx .COMPLEX #180 tabs furosemide 40 mg tablet 40 mg PO DAILY #90 tabs 03/14/25 Unknown Rx losartan 25 mg tablet 25 mg PO DAILY #90 tabs 03/25/25 Unknown Rx metoprolol tartrate 100 mg tablet 100 mg PO BID #180 TABLETS 04/23/25 Unknown Rx Allergy/AdvReac Type Severity Reaction Status Date / Time adhesive tape Allergy Intermediate skin Verified 04/10/25 14:40 irritation montelukast (From Singulair) Allergy Unknown Swelling Verified 04/10/25 14:40 MU Inhibitors Allergy swelling Verified 04/10/25 14:40 Surgical History History of cardioversion (10/22/19) H/O total hysterectomy History of lumpectomy of right breast (2002) Social History Smoking Status: Former smoker how long ago did patient quit smokin years alcohol intake: current alcohol intake frequency: holidays/special occasions only substance use type: does not use caffeine: Yes Type: tea Physical Exam Const alert, oriented x3, no apparent distress and well nourished Constitutional Narrative: Patient's BMI is 32.4. The patient is limited in her mobility due to back pain. General Appearance: cooperative, comfortable and well developed Orientation / Consciousness: awake, oriented to person, oriented to place and oriented to time HEENT normocephalic and head/scalp atraumatic Head and Scalp: normal to inspection, normocephalic and atraumatic Nose: external nose normal External Ear: external ears normal Eyes EOMs intact bilaterally General Eye: normal appearance of both eyes Resp normal respiratory effort, normal air movement, no retractions and no use of accessory muscles Effort and Inspection: able to speak in complete sentences Extremity Extremity Narrative: Moderate swelling is noted in the lower extremities bilaterally. Skin Wound Narrative: The ulceration on the patient's left buttock appears to be completely healed and epithelialized. However, a new small ulceration is noted on the patient's sacrum, in the upper cleft of her buttocks. This ulceration is full-thickness, and quite small in size. Ulcer margins are well beveled. Dimensions are documented elsewhere. There is no sign of infection or cellulitis. It is generally pink and healthy in appearance, with a small amount of bioburden. Neuro oriented x3, CN's II-XII intact bilaterally and moves all extremities Sensorium / Orientation: awake, alert, oriented to person, oriented to place and oriented to time Speech: speech normal Psych Appearance: grossly normal and appropriate Attitude: calm Activity / Motor Behavior: appropriate eye contact Speech: normal speech Mood & Affect: euthymic mood Thought Process: normal thought process Thought Content: normal thought content Attention / Concentration: attention grossly intact Debridement Note Debridement Note Wound debrided: Sacral pressure ulceration Laterality: Not Applicable (Midline) Wound Grade/Stage: Stage III Type of Debridement: Excisional debridement Anesthesia Used: Cetacaine Depth: Down to and including healthy tissue and in the subcutaneous layer Percentage of wound debrided: 100 Instrument Used: 3mm curette Tissue Removed: Bioburden Severity: Fat Layer Exposed Amount of bleeding with debridement: Mild Bleeding Controlled with: Compression and gauze Patient tolerated procedure: Patient tolerated procedure well Post-Debridement Measurements and Additional Note: Post-Debridement Measurements/Treatment - Nurse 1 - General Ulcer Assessment Start: 04/23/25 10:54 Freq: Status: Active Protocol: NAM Activity Type Activity Date Activity User E-sign Co-sign Detail Recorded Client Recorded Date Recorded By Document 04/23/25 10:54 [id number] 04/23/25 10:56 Document 04/30/25 11:22 [facility] [id number] 04/30/25 11:30 [facility] Document 05/07/25 10:55 [facility] [id number] 05/07/25 10:58 [facility] 04/23/25 04/30/25 05/07/25 10:54 11:22 10:55 - Today's Visit Information Type of service Follow-up Visit Follow-up Visit Follow-up Visit (Physician/SYSTEM CONSULTANT (Physician/SYSTEM CONSULTANT (Physician/SYSTEM CONSULTANT ) ) ) Arrival Mode Wheelchair Stretcher Wheelchair Transfer Assistance Other None Transfer Assist (Other) stand by Accompanied by be Patient Identification Verified (Name & Yes Yes Yes ) Patient Requires Transmission-Based No Yes Precautions Safety Precautions NA Vital Signs Comment refuses History Since Last Visit- (Skip if this is Patient's initial visit) Have you changed medications since your No No No last visit? Any new allergies or adverse reactions No No No Had a fall/change in ADL's that may No No No increase risk of falls Signs or symptoms of abuse and/or No No No neglect since last visit Have you been in the hospital since your No No No last visit? Has dressing in place as prescribed Yes Yes Yes Has compression in place as prescribed N/A N/A N/A Has offloadiing in place as prescribed N/A N/A N/A Experienced any changes in pain level or No No No management Left Footwear Regular Shoe Regular Shoe Regular Shoe Right Footwear Regular Shoe Regular Shoe Regular Shoe Pain Scale: 0-10 Numeric Is Patient Pain Free? Yes Yes Yes WC - Nurse 1 - General Ulcer Measurement Start: 04/23/25 10:54 Freq: Status: Active Protocol: Activity Type Activity Date Activity User E-sign Co-sign Detail Recorded Client Recorded Date Recorded By Document 04/23/25 10:54 KW [id number] 04/23/25 10:56 KW Document 04/30/25 11:22 BM [id number] 04/30/25 11:30 BMF Document 05/07/25 10:55 BM [id number] 05/07/25 10:58 BMF 04/23/25 04/30/25 05/07/25 10:54 11:22 10:55 Wound Center Nurse 1 #1 lt buttock cluster -Combined with other wound No No -Current Size (cm) - Length 0.1 0.2 0.1 -Current Size (cm) - Width 0.1 0.4 0.1 -Current Size (cm) - Depth 0 0.1 0.1 -Total Square Cm 0.01 0.08 0.01 -Date of Last Picture (Recall this 04/23/25 04/30/25 05/07/25 field) -Photo Taken Yes Yes -Epithelialization Small 1-33% Large 67-100% -Tunneling No No -Undermining/Tunneling No No -Circular Undermining No No -Exudate Amt Medium -Exudate Type Sanguineous -Wound Margin Distinct, Distinct, Outline Outline Attached Attached -Granulation Amt Large (67-100%) Large (67-100%) -Granulation Quality [place] Red -Slough/Fibrin No -Necrosis Amt None Present (0 %) -Texture (Lynnette-wound Skin Appearance) Assessed Assessed, Assessed, Scarring Scarring -Moisture (Lynnette-wound Skin Appearance) Assessed Assessed Assessed,Dry/ Scaly -Color (Lynnette-wound Skin Appearance) Assessed Assessed Assessed -Temperature (Lynnette-wound Skin No Abnormality No Abnormality No Abnormality Appearance) (Pt Warm) (Pt Warm) (Pt Warm) -Tenderness on Palpation (Lynnette-wound No No No Skin Appearance) -Ulcer Cleansing Rinsed/ Rinsed/ Rinsed/ Irrigated with Irrigated with Irrigated with Saline Saline Saline -Foul Odor after Cleansing No No No -Anesthetic Used 5% Lidocaine 5% Lidocaine 5% Lidocaine Gel Gel Gel WC - Nurse 2 - General Ulcer CM Notes Start: 04/23/25 10:54 Freq: Status: Active Protocol: Activity Type Activity Date Activity User E-sign Co-sign Detail Recorded Client Recorded Date Recorded By Document 04/23/25 11:38 DS [id number] 04/23/25 11:40 DS Document 04/30/25 11:40 DS [id number] 04/30/25 11:41 DS Document 05/07/25 11:16 DS [id number] 05/07/25 11:19 DS 04/23/25 04/30/25 05/07/25 11:38 11:40 11:16 Wound Center Nurse 2 #1 lt buttock cluster -Time 11:38 11:40 11:17 -Correct Patient Yes Yes Yes -Correct Side, Site, Position Yes Yes Yes -Correct Procedure Yes Yes -Procedure Performed Yes Yes No -Type of Procedure Debridement Debridement -Clinical Debridement Subcutaneous Subcutaneous -Tissue Removed Subcutaneous Subcutaneous -Post Debridement (cm) - Length 0.5 0.4 -Post Debridement (cm) - Width 1.1 0.6 -Post Debridement (cm) - Depth 0.1 0.1 -Total Square (Post) (cm) 0.55 0.24 -Area of Debridement (cm) - Length 0.5 0.4 -Area of Debridement (cm) - Width 1.0 0.6 -Total Square (Area) (cm) 0.50 0.24 -Tunneling No No -Undermining/Tunneling No No -Circular Undermining No No -Wound/Ulcer Outcome Not Healed Not Healed Healed- Epithelialized -Ulcer Cleansing gauze -Foul Odor after Cleansing No No -Bioengineered Tissue No No -Bleeding Controlled with Pressure Pressure -Treatment Response Procedure Procedure Tolerated Well Tolerated Well -Debridement - Subq, 1st 20sq cm Yes Yes #2 sacrum -Time 11:17 -Correct Patient Yes -Correct Side, Site, Position Yes -Correct Procedure Yes -Procedure Performed Yes -Type of Procedure Debridement -Clinical Debridement Subcutaneous -Tissue Removed Subcutaneous -Post Debridement (cm) - Length 1.0 -Post Debridement (cm) - Width 0.2 -Post Debridement (cm) - Depth 0.1 -Total Square (Post) (cm) 0.20 -Area of Debridement (cm) - Length 1.0 -Area of Debridement (cm) - Width 0.2 -Total Square (Area) (cm) 0.20 -Tunneling No -Undermining/Tunneling No -Circular Undermining No -Wound/Ulcer Outcome Not Healed -Ulcer Cleansing gauze -Foul Odor after Cleansing No -Bioengineered Tissue No -Bleeding Controlled with Pressure -Treatment Response Procedure Tolerated Well -Debridement - Subq, 1st 20sq cm Yes Pain Scale: 0-10 Numeric Is Patient Pain Free? Yes Yes Yes - Nurse 3 - General Ulcer D/C NN Start: 04/23/25 10:54 Freq: Status: Active Protocol: Activity Type Activity Date Activity User E-sign Co-sign Detail Recorded Client Recorded Date Recorded By Document 04/23/25 11:46 [id number] 04/23/25 11:47 KW Document 04/30/25 11:51 [facility] [id number] 04/30/25 11:52 [facility] Document 05/07/25 11:25 [id number] 05/07/25 11:26 04/23/25 04/30/25 05/07/25 11:46 11:51 11:25 Wound Care Center Nurse 3 #1 lt buttock cluster -Ulcer Cleansing Rinsed/ Irrigated with Saline -Foul Odor after Cleansing No -Other Dressing pt own excel sap, promagran lien moistened, protect skin with barrier and cover excel sap -Wound Comment(s) dressings used pt brought new are all pt supplies from owned home #2 sacrum -Ulcer Cleansing Rinsed/ Irrigated with Saline -Foul Odor after Cleansing No -Primary Dressing Applied Promogran -Other Dressing excel sap-- patient's own supply -Promogran 0 -Silicone Border Foam 4x4 0 Treatment Response Procedure Tolerated Well Pain Scale: 0-10 Numeric Is Patient Pain Free? Yes Yes Yes - Visit Discharge Discharge Condition Stable Stable Stable Ambulatory Status Wheelchair Wheelchair Wheelchair Transportation Private Auto Private Auto Private Auto Accompanied by Medication Reconcilliation completed & No Yes provided to patient/care provider Clinical Summary of Care Provided Yes Yes Charges/Coding Multi Select Codes Visit Charges Office Visit/Consults: 19892 OV L2 Est 10min Integumentary Integumentary CPT Codes: 92643 Sudha subq tissue 20 sq cm/< Assessment/Plan Assessment/Plan (1) Pressure ulcer of sacral region, stage 3: CODE(S): L89.153 - Pressure ulcer of sacral region, stage 3 (2) Pressure ulcer of left buttock, stage 3: CODE(S): L89.323 - Pressure ulcer of left buttock, stage 3 (3) Long-term current use of steroids: (4) Jalil's granulomatosis: CODE(S): M31.30 - Jalil's granulomatosis without renal involvement QUALIFIERS: Granulomatosis renal involvement: with renal involvement Qualified Code(s): M31.31 - Jalil's granulomatosis with renal involvement (5) CKD (chronic kidney disease), stage III: CODE(S): N18.3 - Chronic kidney disease, stage 3 (moderate) (6) Prediabetes: CODE(S): R73.03 - Prediabetes (7) Paroxysmal atrial fibrillation: CODE(S): I48.0 - Paroxysmal atrial fibrillation (8) Non-ischemic cardiomyopathy: CODE(S): I42.8 - Other cardiomyopathies (9) Chronic combined systolic and diastolic CHF (congestive heart failure): CODE(S): I50.42 - Chronic combined systolic (congestive) and diastolic (congestive) heart failure (10) Nonsustained ventricular tachycardia: CODE(S): I47.2 - Ventricular tachycardia (11) Essential (primary) hypertension: CODE(S): I10 - Essential (primary) hypertension (12) Hyperlipemia: CODE(S): E78.5 - Hyperlipidemia, unspecified QUALIFIERS: Hyperlipidemia type: mixed hyperlipidemia Qualified Code(s): E78.2 - Mixed hyperlipidemia (13) Unspecified asthma, uncomplicated: CODE(S): J45.909 - Unspecified asthma, uncomplicated (14) 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: CODE(S): M31.30 - Jalil's granulomatosis without renal involvement (15) Osteoarthritis: CODE(S): M19.90 - Unspecified osteoarthritis, unspecified site (16) Fibromyalgia: CODE(S): M79.7 - Fibromyalgia (17) History of cardioversion: CODE(S): Z98.890 - Other specified postprocedural states (18) H/O total hysterectomy: CODE(S): Z90.710 - Acquired absence of both cervix and uterus (19) History of lumpectomy of right breast: CODE(S): Z98.890 - Other specified postprocedural states (20) Chronic anticoagulation: 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 The patient is of limited mobility, due to severe back problems, and is under the care of the Pain Management service. She spends long periods each day in a sitting position. We have discussed offloading measures in detail. We are attempting to obtain a Roho cushion for the patient's wheelchair. She has also been advised to seek positions other than sitting to enhance offloading measures. The patient claims to take a well-balanced and nutritious diet, and has been urged to continue this practice. The left buttock pressure ulceration appears to be healed. However, patient now has a new stage III pressure ulceration in the sacral area. This is located in the upper cleft of her buttocks. We are to continue the use of Promogran topically to this new sacral ulceration. This will be covered with [place] SAP. The patient and her caregiver have been instructed in the appropriate means of application. Offloading measures are to be continued, and the patient has been encouraged to focus on hygiene, avoiding the accumulation of perspiration and moisture to the area. Additionally, because of swelling in the patient's lower extremities, she has been advised to elevate her lower extremities to heart level, or higher, as much as possible. We have also discussed that the chronic use of a systemic steroid may impair the wound healing process. The patient is to return in 1 week for reevaluation. Total time: 24 minutes
[2025-05-14 13:54] VITALS: RESP 16
--- NOTE | 2025-05-15 10:08 | WC ---
PHOTO- SACRUM 05-14-25
--- NOTE | 2025-05-17 11:55 | PCM.WC.HP ---
History of Present Illness Date of Service: 05/14/25 Chief Complaint: Pressure ulceration of the left buttock, stage III History of Wound: This is a 80-year-old female who presented with an ulceration on the left buttock. The ulceration had been present for approximately 2 to 3 months. It appeared to be pressure related. The patient is limited in ambulation, and requires the use of a walker. She sits for long periods each day. She claims to sleep on a flat mattress at night. However, she can only lay on her back, and is unable to assume the lateral decubitus position due to chronic back problems. She is under the care of Pain Management, and is scheduled to undergo injection procedures in the near future. She uses a foam cushion on her wheelchair. She had been using Calmoseptine and Neosporin topically on the ulcer site. She is on long-term systemic anticoagulation with Eliquis due to atrial fibrillation. 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 As result, she is prediabetic. Because of her predilection to long periods of sitting, she also experiences swelling in her lower extremities. 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 Unspecified asthma, uncomplicated Osteoarthritis Breast cancer, right breast Fibromyalgia Obesity Essential (primary) hypertension Hyperlipemia Jalil's granulomatosis Home Medications Medication Instructions Recorded Last Taken Type atorvastatin 20 mg tablet 20 mg PO QHS 09/18/19 Unknown History calcium 600 mg (as 1 cap PO DAILY 09/18/19 Unknown History carbonate)-vitamin D3 5 mcg (200 unit) capsule (Calcium 600 + D(3)) glipizide 5 mg tablet (Glucotrol) 5 mg PO BID 09/18/19 Unknown History potassium chloride 20 mEq 20 meq PO DAILY #30 tabs 09/19/19 10/22/19 Rx tablet,extended release rituximab 10 mg/mL mg .Route 06/21/20 Unknown History concentrate,intravenous (Rituxan) esomeprazole magnesium 40 mg 40 mg PO DAILY 12/08/21 Unknown History capsule,delayed release (Nexium) ferrous sulfate 325 mg (65 mg 325 mg PO BID 12/08/21 Unknown History iron) tablet sulfamethoxazole 800 1 tab PO MOWEFR 03/24/22 Unknown History mg-trimethoprim 160 mg tablet (Bactrim DS) albuterol sulfate 2.5 mg/3 mL 2.5 mg inhalation Q4H PRN 04/19/24 Unknown History (0.083 %) solution for nebulization shortness of breath or wheezing albuterol sulfate 90 mcg/actuation 2 puff inhalation Q4H PRN 04/19/24 Unknown History aerosol inhaler (ProAir HFA) shortness of breath or wheezing diclofenac sodium 1 % topical gel 2 g topical 4XD PRN 04/19/24 Unknown History (Arthritis Pain (diclofenac)) fluticasone 500 mcg-salmeterol 50 inhalation 04/19/24 Unknown History mcg/dose blistr powdr for inhalation (Timothyxela Inhub) hydroquinone 4 % topical cream 1 applic topical BID PRN 04/19/24 Unknown History hyoscyamine sulfate 0.125 mg tablet 0.125 mg PO BID-QID PRN 04/19/24 Unknown History loratadine 10 mg tablet (Claritin) 10 mg PO DAILY 04/19/24 Unknown History multivitamin 1 tab PO DAILY 04/19/24 Unknown History nystatin 100,000 unit/gram topical 1 applic topical BID 04/19/24 Unknown History cream prednisone 5 mg tablet 5 mg PO QDAY 04/19/24 Unknown History tizanidine 4 mg tablet 4 mg PO TID PRN muscle spasticity 04/19/24 Unknown History amiodarone 100 mg tablet 100 mg PO DAILY #90 tabs 10/22/24 Unknown Rx apixaban 5 mg tablet (Eliquis) See Rx Instructions .Route 12/05/24 Unknown Rx .COMPLEX #180 tabs furosemide 40 mg tablet 40 mg PO DAILY #90 tabs 03/14/25 Unknown Rx losartan 25 mg tablet 25 mg PO DAILY #90 tabs 03/25/25 Unknown Rx metoprolol tartrate 100 mg tablet 100 mg PO BID #180 TABLETS 04/23/25 Unknown Rx Allergy/AdvReac Type Severity Reaction Status Date / Time adhesive tape Allergy Intermediate skin Verified 04/10/25 14:40 irritation montelukast (From Singulair) Allergy Unknown Swelling Verified 04/10/25 14:40 MU Inhibitors Allergy swelling Verified 04/10/25 14:40 Surgical History History of cardioversion (10/22/19) H/O total hysterectomy History of lumpectomy of right breast (2002) Social History Smoking Status: Former smoker how long ago did patient quit smokin years alcohol intake: current alcohol intake frequency: holidays/special occasions only substance use type: does not use caffeine: Yes Type: tea Physical Exam Const alert, oriented x3, no apparent distress and well nourished Constitutional Narrative: Patient's BMI is 32.4. The patient is limited in her mobility due to back pain. General Appearance: cooperative, comfortable and well developed Orientation / Consciousness: awake, oriented to person, oriented to place and oriented to time HEENT normocephalic and head/scalp atraumatic Head and Scalp: normal to inspection, normocephalic and atraumatic Nose: external nose normal External Ear: external ears normal Eyes EOMs intact bilaterally General Eye: normal appearance of both eyes Resp normal respiratory effort, normal air movement, no retractions and no use of accessory muscles Effort and Inspection: able to speak in complete sentences Extremity Extremity Narrative: Moderate swelling is noted in the lower extremities bilaterally. Skin Wound Narrative: The ulceration on the patient's left buttock remains completely healed and epithelialized. The more recent small ulceration on the patient's sacrum also appears to be completely healed and epithelialized. There are no open ulcerations in the buttock, sacral, or perineal area at this time. Neuro oriented x3, CN's II-XII intact bilaterally, moves all extremities and no focal motor deficits Sensorium / Orientation: awake, alert, oriented to person, oriented to place and oriented to time Speech: speech normal Psych Appearance: grossly normal and appropriate Attitude: calm Activity / Motor Behavior: appropriate eye contact Speech: normal speech Mood & Affect: euthymic mood Thought Process: normal thought process Thought Content: normal thought content Attention / Concentration: attention grossly intact Debridement Note Debridement Note No debridement was completed: No debridement was completed today (There are no open wounds or ulcerations.) Charges/Coding Visit Charges Office Visits / Consults: 02188 OV L3 Est 20min Assessment/Plan Assessment/Plan (1) Pressure ulcer of sacral region, stage 3: CODE(S): L89.153 - Pressure ulcer of sacral region, stage 3 (2) Pressure ulcer of left buttock, stage 3: CODE(S): L89.323 - Pressure ulcer of left buttock, stage 3 (3) Long-term current use of steroids: (4) Jalil's granulomatosis: CODE(S): M31.30 - Jalil's granulomatosis without renal involvement QUALIFIERS: Granulomatosis renal involvement: with renal involvement Qualified Code(s): M31.31 - Jalil's granulomatosis with renal involvement (5) CKD (chronic kidney disease), stage III: CODE(S): N18.3 - Chronic kidney disease, stage 3 (moderate) (6) Prediabetes: CODE(S): R73.03 - Prediabetes (7) Paroxysmal atrial fibrillation: CODE(S): I48.0 - Paroxysmal atrial fibrillation (8) Non-ischemic cardiomyopathy: CODE(S): I42.8 - Other cardiomyopathies (9) Chronic combined systolic and diastolic CHF (congestive heart failure): CODE(S): I50.42 - Chronic combined systolic (congestive) and diastolic (congestive) heart failure (10) Nonsustained ventricular tachycardia: CODE(S): I47.2 - Ventricular tachycardia (11) Essential (primary) hypertension: CODE(S): I10 - Essential (primary) hypertension (12) Hyperlipemia: CODE(S): E78.5 - Hyperlipidemia, unspecified QUALIFIERS: Hyperlipidemia type: mixed hyperlipidemia Qualified Code(s): E78.2 - Mixed hyperlipidemia (13) Unspecified asthma, uncomplicated: CODE(S): J45.909 - Unspecified asthma, uncomplicated (14) 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: CODE(S): M31.30 - Jalil's granulomatosis without renal involvement (15) Osteoarthritis: CODE(S): M19.90 - Unspecified osteoarthritis, unspecified site (16) Fibromyalgia: CODE(S): M79.7 - Fibromyalgia (17) History of cardioversion: CODE(S): Z98.890 - Other specified postprocedural states (18) H/O total hysterectomy: CODE(S): Z90.710 - Acquired absence of both cervix and uterus (19) History of lumpectomy of right breast: CODE(S): Z98.890 - Other specified postprocedural states (20) Chronic anticoagulation: CODE(S): Z79.01 - beauty counselor (current) use of anticoagulants PLAN: Plan This is a 80-year-old female who presented with an ulceration on her left buttock, appearing to be a stage III pressure ulceration. The patient is of limited mobility, due to severe back problems, and is under the care of the Pain Management service. She spends long periods each day in a sitting position. We have discussed offloading measures in detail. She has also been advised to seek positions other than sitting to enhance offloading measures. Attempts have been made to obtain a Roho cushion for the patient's wheelchair. The patient claims to take a well-balanced and nutritious diet, and has been urged to continue this practice. The left buttock pressure ulceration and the sacral ulceration appear to be completely healed and epithelialized. Therefore, the patient is to be discharged, and will follow-up henceforth on an as-needed basis. She has been encouraged to continue offloading measures, and to maintain hygiene to the buttock and perineal areas. The areas are to be padded and protected in the short-term future. Additionally, because of swelling in the patient's lower extremities, she has been advised to elevate her lower extremities to heart level, or higher, as much as possible. Total time: 22 minutes
== END 2025-05-15 13:22 | disposition home or self-care (01) ==
LOC: WC 14:00
PROVIDERS: PCP Internal Medicine; Referring Provider Internal Medicine; Visit Provider Surgery
DX: L89.323 Pressure ulcer of left buttock, stage 3 (principal); L89.153 Pressure ulcer of sacral region, stage 3; M31.31 Wegener's granulomatosis with renal involvement; I50.42 Chronic combined systolic (congestive) and diastolic (congestive) heart failure; I13.0 Hypertensive heart and chronic kidney disease with heart failure and stage 1 through stage 4 chronic kidney disease, or unspecified chronic kidney disease; I48.0 Paroxysmal atrial fibrillation; I47.20 Ventricular tachycardia, unspecified; I42.8 Other cardiomyopathies; N18.30 Chronic kidney disease, stage 3 unspecified; Z79.51 Long term (current) use of inhaled steroids; E78.2 Mixed hyperlipidemia; Z87.891 Personal history of nicotine dependence; R73.03 Prediabetes; Z79.01 Long term (current) use of anticoagulants; M79.7 Fibromyalgia; Z79.52 Long term (current) use of systemic steroids; J45.909 Unspecified asthma, uncomplicated; Z90.710 Acquired absence of both cervix and uterus; M19.90 Unspecified osteoarthritis, unspecified site
CPT/HCPCS: 11042; 99213; G0463

== ENCOUNTER → 2025-07-08 | Outpatient (CLI) | payer MEDICARE, BC, SELFPAY ==
--- NOTE | 2025-07-08 12:52 | ECHOD_ITS ---
Reason For Study Reason For Study: CORONARY ARTERY DISEASE Procedure This was a 2D Doppler, Color Flow transthoracic echocardiogram. The patient was scanned supine. Exam performed in department. Left Ventricle Normal LV size. The left ventricular ejection fraction is 50 %. No regional wall motion abnormalities noted. Right Ventricle Normal RV size. Normal systolic function. Atria The left atrium is mildly enlarged. Normal right atrium. Mitral Valve Normal mitral valve. Mild (1+) eccentric mitral valve insufficiency. Tricuspid Valve Normal tricuspid valve. Mild (1+) tricuspid valve insufficiency. Pulmonary artery systolic pressure is 32 mmHg. Aortic Valve Trisinus/trileaflet aortic valve. Peak aortic valve gradient 10.2 mmHg. Mean aortic valve gradient 6 mmHg. Pulmonic Valve Normal pulmonic valve. Great Vessels Normal aortic root. The pulmonary artery is normal size. Inferior vena cava collapse with respiration. Pericardium/Pleural No pericardial effusion. MMode/2D Measurements & Calculations LVIDd: 4.8 cm IVSd: 1.1 cm LVOT diam: 1.8 cm LVIDs: 3.7 cm LVPWd: 1.1 cm LVOT area: 2.6 cm2 RVDd: 2.9 cm FS: 23.9 % asc Aorta Diam: 3.3 cm LAV(MOD-bp): 57.6 ml LVAd ap4: 18.3 cm2 LAV(MOD-bp) Indexed: 33.1 ml/m2 LVLd ap4: 6.5 cm LAV(MOD-sp2): 52.5 ml EDV(MOD-sp4): 41.5 ml LAV(MOD-sp4): 60.1 ml EDV(sp4-el): 44.0 ml LVAs ap4: 11.3 cm2 LVLs ap4: 5.5 cm ESV(MOD-sp4): 19.5 ml ESV(sp4-el): 19.7 ml EF(MOD-sp4): 53.1 % EF(sp4-el): 55.2 % LVAd ap2: 18.8 cm2 SV(MOD-sp4): 22.0 ml SV(MOD-sp2): 21.0 ml LVLd ap2: 6.8 cm SI(MOD-sp4): 12.6 ml/m2 SI(MOD-sp2): 12.0 ml/m2 EDV(MOD-sp2): 42.7 ml EDV(sp2-el): 44.1 ml LVAs ap2: 12.6 cm2 LVLs ap2: 6.2 cm ESV(MOD-sp2): 21.8 ml ESV(sp2-el): 21.7 ml EF(MOD-sp2): 49.1 % SV(sp4-el): 24.3 ml Ao sinus diam: 3.[address] Junction: 2.4 cm LA dimension(2D): 3.8 cm LA A4 area: 20.9 cm2 RA A4 area: 11.1 cm2 TAPSE: 0.99 cm Time Measurements MV dec time: 0.14 sec Doppler Measurements & Calculations MV E max rubina: 73.4 cm/sec Ao V2 max: 159.2 cm/sec LV V1 max: 82.0 cm/sec Ao max P.2 mmHg LV V1 max P.8 mmHg Ao V2 mean: 112.1 cm/sec LV V1 mean P.6 mmHg Ao mean P.8 mmHg LV V1 mean: 56.7 cm/sec Ao V2 VTI: 34.6 cm LV V1 VTI: 16.2 cm AV (velocity ratio): 0.47 TANK(I,D): 1.2 cm2 TANK(V,D): 1.4 cm2 SV(LVOT): 42.6 ml PA V2 max: 62.2 cm/sec TR max rubina: 263.5 cm/sec TR max P.8 mmHg ECHO/Echo Complete Interpretation Summary Normal LV size. The left ventricular ejection fraction is 50 %. The left atrium is mildly enlarged. No regional wall motion abnormalities noted. Pulmonary artery systolic pressure is 32 mmHg. Mean aortic valve gradient 6 mmHg. Ordering Physician: Gilberto Mcarthur Referring Physician: Gilberto Mcarthur MD Performed By: Debbie Hoff RDCS
== END | disposition home or self-care (01) ==
LOC: CVS 12:51
PROVIDERS: PCP Internal Medicine; Referring Provider Internal Medicine Cardiovascular Disease; Visit Provider Internal Medicine Cardiovascular Disease
DX: I42.8 Other cardiomyopathies (principal)
CPT/HCPCS: 93306